=== PATIENT | female | born 1970 | race Caucasian/White ===

== ENCOUNTER 2017-09-06 10:39 | Outpatient (CLI) | payer MEDICAID ==
--- NOTE | 2017-09-06 11:39 | XRAY Report ---
THREE VIEW RIGHT FOOT: 09/06/2017 CLINICAL INDICATION: Foot pain. FINDINGS: AP, lateral, oblique views of the right foot demonstrate no evidence of fracture or dislocation. The joint spaces are preserved. No radiopaque foreign body is seen in the soft tissues. IMPRESSION: NORMAL RIGHT FOOT. TD: 09/06/2017 11:39
== END 2017-09-06 10:40 | disposition home or self-care (01) ==
LOC: DI.S 10:39
PROVIDERS: ATTEND Nurse Practitioner Family
DX: M79.671 Pain in right foot (principal)

== ENCOUNTER 2017-09-07 08:25 | Outpatient (CLI) | payer MEDICAID ==
[2017-09-07 09:00] LABS: BASOPHILS # (AUTO) 0.1 10^3/uL (0.0-0.1); BASOPHILS % (AUTO) 0.9 %; EOSINOPHILS # (AUTO) 0.1 10^3/uL (0.0-0.7); HGB - HEMOGLOBIN 14.2 g/dL (12.0-16.0); LYMPHOCYTES # (AUTO) 1.6 10^3/uL (1.5-3.5); LYMPHOCYTES % (AUTO) 25.4 %; MEAN CORPUSCULAR HEMOGLOBIN 30.6 pg (27.0-31.0); MEAN CORPUSCULAR VOLUME 89.9 fL (81.0-99.0); MEAN PLATELET VOLUME 8.9 fL (7.9-10.8); MONOCYTES # (AUTO) 0.5 10^3/uL (0.0-1.0); MONOCYTES % (AUTO) 7.2 %; NEUTROPHILS # (AUTO) 4.2 10^3/uL (1.5-6.6); NEUTROPHILS % (AUTO) 65.5 %; PLT - PLATELET COUNT 301 10^3/uL (130-450); RED BLOOD COUNT 4.66 10^6/uL (4.20-5.40); WHITE BLOOD COUNT 6.4 x10^3/uL (4.8-10.8)
[2017-09-07 09:16] LABS: ALBUMIN 4.3 g/dL (3.2-5.5); ALBUMIN/GLOBULIN RATIO 1.4 (1.0-2.2); ALKALINE PHOSPHATASE 53 IU/L (42-121); ALT ALANINE AMINOTRANSFERASE 18 IU/L (10-60); AST ASPARTATE AMINOTRANSFERASE 21 IU/L (10-42); BILIRUBIN,TOTAL 0.6 mg/dL (0.2-1.0); BUN - BLOOD UREA NITROGEN 15 mg/dL (6-20); CALCIUM 9.1 mg/dL (8.5-10.3); CARBON DIOXIDE - CO2 22 mmol/L (21-32); CHLORIDE 105 mmol/L (101-111); CHOL/HDL RATIO 2.8 (<4.4); CHOLESTEROL 204 mg/dL; CREATININE 0.8 mg/dL (0.4-1.0); GFR - MDRD 76 (>89); GLUCOSE 94 mg/dL (70-100); HDL CHOLESTEROL 73 mg/dL; LDL CHOLESTEROL,CALCULATED 112 mg/dL; LDL/HDL RATIO 1.5 (<4.4); SODIUM 135 mmol/L (135-145); TOTAL PROTEIN 7.4 g/dL (6.7-8.2); VLDL CHOLESTEROL 19 mg/dL
[2017-09-07 09:30] LABS: CRP - C-REACTIVE PROTEIN < 1.0 mg/dL (0-1.0)
[2017-09-07 10:49] LABS: RHEUMATOID FACTOR NEGATIVE (Negative)
== END 2017-09-07 08:26 | disposition home or self-care (01) ==
LOC: LAB 08:25
PROVIDERS: ATTEND Nurse Practitioner Family
DX: R53.81 Other malaise (principal); Z13.220 Encounter for screening for lipoid disorders; G89.29 Other chronic pain
CPT/HCPCS: 36415; 80053; 80061; 83721; 84443; 85025; 85651; 86038; 86140; 86200; 86430

== ENCOUNTER 2017-09-20 07:47 | Outpatient (CLI) | payer MEDICAID ==
[2017-09-20] MEDS ORDERED: GADOBUTROL 10 MMOL/10 ML SYRINGE ONE (08:04)
[2017-09-20] MEDS ORDERED: GADOBUTROL 10 MMOL/10 ML SYRINGE IVP ONE (09:36)
--- NOTE | 2017-09-20 15:32 | MRI Report ---
MR ANGIOGRAM LOWER EXTREMITIES WITH RUNOFF DATE:09/20/2017 CLINICAL HISTORY: Right foot pain. TECHNIQUE: Standard angiographic protocol. Patient did receive 10 mL Gadavist IV, no reaction. Subseq uent angiographic acquisitions were acquired and then processed to produce angiographic projections. FINDINGS: Distal aorta, common iliacs, external iliacs, and common femorals have a normal appearance. Superficial femoral and popliteal vessels are also normal. Below the knee, normal trifurcation bilat erally. No stenosis, no occlusion, no dissection. Maximal aortic diameter above the bifurcation is 1.6 cm. Review of the source data also shows no evidence for nodules or masses in the muscle bundles of the u pper or lower legs. Marrow signal also appears symmetric and normal. IMPRESSION 1. Normal bilateral lower extremity angiogram and runoff. No evidence for stenosis, stricture, occlus ion or dissection. No aneurysm. Referring Provider Line: [phone] SITE ID: [id number]
== END 2017-09-20 07:48 | disposition home or self-care (01) ==
LOC: DI 07:47
PROVIDERS: ATTEND Nurse Practitioner Family
DX: M79.671 Pain in right foot (principal)
CPT/HCPCS: 73725; A9585

== ENCOUNTER 2017-09-28 13:22 | Outpatient (CLI) | payer MEDICAID ==
--- NOTE | 2017-09-28 14:20 | Mammography Report ---
DIAGNOSTIC BILATERAL MAMMOGRAM: 09/28/2017 CLINICAL INDICATION: Bilateral pain. TECHNIQUE: Bilateral CC, MLO, laterally exaggerated CC, true lateral views. COMPARISON: 04/01/2015, 09/28/2010, 05/26/2009, 11/13/2008. FINDINGS: The breasts again demonstrate heterogeneously dense fibroglandular parenchyma bilaterally. Coarse and punctate, typically benign calcifications are present. No suspicious masses, clustered microcalcifications, or regions of architectural distortion are identified. IMPRESSION: BENIGN FINDINGS. RECOMMENDATION: Routine annual screening unless otherwise clinically indicated. BIRADS CATEGORY 2 - BENIGN FINDINGS. STANDARD QUALIFYING STATEMENTS: 1. This examination was reviewed with the aid of Computer-Aided Detection (CAD). 2. A negative or benign imaging report should not delay biopsy if clinically suspicious findings are present. Consider surgical consultation if warranted. More than 5% of cancers are not identified by imaging. 3. Dense breasts may obscure an underlying neoplasm. TD: 09/28/2017 14:20
== END 2017-09-28 13:23 | disposition home or self-care (01) ==
LOC: DI 13:22
PROVIDERS: ATTEND Nurse Practitioner Family
DX: N64.4 Mastodynia (principal)
CPT/HCPCS: 77066

== ENCOUNTER 2017-10-23 15:13 | Outpatient (CLI) | payer MEDICAID ==
[2017-10-23 15:45] LABS: BASOPHILS # (AUTO) 0.1 10^3/uL (0.0-0.1); BASOPHILS % (AUTO) 0.9 %; EOSINOPHILS # (AUTO) 0.1 10^3/uL (0.0-0.7); EOSINOPHILS % (AUTO) 0.8 %; HGB - HEMOGLOBIN 13.1 g/dL (12.0-16.0); LYMPHOCYTES # (AUTO) 2.4 10^3/uL (1.5-3.5); MEAN CORPUSCULAR HEMOGLOBIN 30.5 pg (27.0-31.0); MEAN CORPUSCULAR HGB CONC 34.5 g/dL (32.0-36.0); MEAN CORPUSCULAR VOLUME 88.5 fL (81.0-99.0); MEAN PLATELET VOLUME 8.4 fL (7.9-10.8); MONOCYTES # (AUTO) 0.5 10^3/uL (0.0-1.0); MONOCYTES % (AUTO) 7.1 %; NEUTROPHILS # (AUTO) 4.2 10^3/uL (1.5-6.6); NEUTROPHILS % (AUTO) 58.2 %; PLT - PLATELET COUNT 329 10^3/uL (130-450); RED CELL DISTRIBUTION WIDTH 12.6 % (12.0-15.0); WHITE BLOOD COUNT 7.3 x10^3/uL (4.8-10.8)
[2017-10-23 15:54] LABS: ALBUMIN 4.5 g/dL (3.2-5.5); ALBUMIN/GLOBULIN RATIO 1.4 (1.0-2.2); BILIRUBIN,TOTAL 0.4 mg/dL (0.2-1.0); CALCIUM 9.4 mg/dL (8.5-10.3); CREATININE 0.8 mg/dL (0.4-1.0); TOTAL PROTEIN 7.8 g/dL (6.7-8.2)
[2017-10-23 15:56] LABS: BILIRUBIN,URINE NEGATIVE (NEGATIVE); GLUCOSE, URINE (UA) NEGATIVE (NEGATIVE); KETONES,URINE (UA) NEGATIVE (NEGATIVE); LEUKOCYTE ESTERASE, URINE NEGATIVE (NEGATIVE); NITRITE,URINE NEGATIVE (NEGATIVE); OCCULT BLOOD,URINE NEGATIVE (NEGATIVE); PH,URINE 6.5 PH (5.0-7.5); PROTEIN,URINE NEGATIVE (NEGATIVE); UROBILINOGEN,URINE 0.2 (NORMAL) E.U./dL (NORMAL)
[2017-10-23 15:58] LABS: CLARITY,URINE CLEAR (CLEAR)
== END 2017-10-23 15:14 | disposition home or self-care (01) ==
LOC: LAB 15:13
PROVIDERS: ATTEND Obstetrics & Gynecology
DX: N80.2 Endometriosis of fallopian tube (principal); R10.2 Pelvic and perineal pain
CPT/HCPCS: 36415; 80053; 81003; 85025; 86850; 86900; 86901

== ENCOUNTER 2017-10-25 08:04 | Observation (INO) | payer MEDICAID ==
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
[2017-10-25] MEDS ORDERED: CLINDAMYCIN 600 MG/50 ML 50 ML IV ONE (08:26)
[2017-10-25] MEDS ORDERED: LACTATED RINGERS 1,000 ML IV ONE ×4 (08:35→12:52)
[2017-10-25] MEDS ORDERED: PHENYLEPHRINE 50 MG/5 ML VIAL IV ONE (09:15)
[2017-10-25] MEDS ORDERED: LIDOCAINE-MPF 2% 5 ML VIAL IM ONE (09:15)
[2017-10-25] MEDS ORDERED: ROCURONIUM 50 MG/5 ML VIAL IVP ONE (09:15)
[2017-10-25] MEDS ORDERED: ePHEDrine 50 MG/ML AMP IVP ONE (09:15)
[2017-10-25] MEDS ORDERED: fentaNYL 250 MCG/5 ML VIAL IVP ONE (09:15)
[2017-10-25] MEDS ORDERED: DEXAMETHASONE 4 MG/ML VIAL IVP ONE (09:15)
[2017-10-25] MEDS ORDERED: PROPOFOL 200 MG/20 ML VIAL IVP ONE (09:15)
[2017-10-25] MEDS ORDERED: GLYCOPYRROLATE 1 MG/5 ML VIAL IVP ONE (09:15)
[2017-10-25] MEDS ORDERED: ONDANSETRON 4 MG/2 ML VIAL IVP ONE (09:15)
[2017-10-25] MEDS ORDERED: NEOSTIGMINE 1 MG/1 ML 10 ML MDV IVP ONE (09:15)
[2017-10-25] MEDS ORDERED: KETOROLAC 30 MG/ML VIAL IVP ONE (09:15)
[2017-10-25] MEDS ORDERED: MIDAZOLAM 2 MG/2 ML VIAL IVP ONE (09:15)
[2017-10-25] MEDS ORDERED: ACETAMINOPHEN 1,000 MG/100 ML 100 ML IV ONE (09:15)
[2017-10-25] MEDS ORDERED: BUPIVACAINE 0.5%-EPI 1:200000 PF 30 ML VIAL SUBQ ONE ×2 (09:56)
[2017-10-25] MEDS ORDERED: BUPIVACAINE 0.5%-EPI 1:200000 PF 30 ML VIAL ONE (10:02)
[2017-10-25] MEDS ORDERED: METHYLENE BLUE 0.5% 50 MG/10 ML AMPULE ONE (12:02)
--- NOTE | 2017-10-25 12:32 | OPERATIVE REPORT ---
Operative Report - General Procedure Date: 10/25/17 Planned Procedure: LAVH with BSO and cystoscopy Pre-Op Diagnosis: Chronic pelvic pain, lower bilateral lower quadrant pain, history of endome Procedure Performed: Laparoscopic assisted vaginal hysterectomy, bilateral salpingectomy, right oophorectomy, cystoscopy, Park's culdoplasty Post Op Diagnosis: Large degenerating leiomyomas; adhesions - Procedure Note Primary Surgeon: José Donohue MD Secondary Surgeon: José Gandhi MD Anesthesia Provider: Real Anders certified nurse envelope stuffer Anesthesia Technique: General ET tube IV Fluids (mL): 1,500 Estimated Blood Loss (mL): 50 Urine Output (mL): 200 Drain/Tube Type: Other Complications: None
[2017-10-25] MEDS ORDERED: ONDANSETRON 4 MG/2 ML VIAL IVP PRN (13:00)
[2017-10-25] MEDS ORDERED: ZOLPIDEM 5 MG TABLET PO PRN (13:00)
[2017-10-25] MEDS ORDERED: HYDROmorphone 1 MG/ML CARPUJECT ONE (13:04)
[2017-10-25] MEDS ORDERED: LORazepam 0.5 MG TABLET PO PRN (13:09)
--- NOTE | 2017-10-25 14:11 | OPERATIVE REPORT ---
DATE OF SERVICE: 10/25/2017 Physician: José Donohue MD PREOPERATIVE DIAGNOSIS: Chronic pelvic pain, bilateral lower quadrant pain right greater than left, history of endometriosis. POSTOPERATIVE DIAGNOSIS: Degenerating leiomyomas approximately 5-6 cm in size x2, adhesions involving the colon and abdominal wall, cystitis cystica. PROCEDURE: Laparoscopic-assisted vaginal hysterectomy, bilateral salpingectomy , right oophorectomy, cystoscopy, Park's culdoplasty, and lysis of adhesions. SURGEON: José Donohue MD, FACOG, FICS TYPING POOL SUPERVISOR: José Sanon MD, FACOG, STATION CLEANING PORTER: Real Anders, Certified Nurse Distribution Lineman ANESTHESIA TYPE: General with ET tube placed. PATHOLOGY: Uterus, tubes and 2 fibroids sent to Pathology. Right ovary also sent. IV FLUIDS: 1500. ESTIMATED BLOOD LOSS: 50 mL or less. URINE OUTPUT: 200 mL, clear. DRAINS: Bates. COMPLICATIONS: None. FINDINGS: Exam under anesthesia finds no vulvar lesions, and the vagina is well suspended high in the pelvis. There is no prolapse found. The uterus seemed bulky, once again with a left ovarian fullness. Laparoscopy findings a normal-sized uterus with 2 pedunculated, large, degenerating fibroids roughly 6 cm in diameter in the left adnexal area and 5 cm in diameter in the cul-de-sac. Reference photos. The tubes appeared to be normal. Right ovary was enlarged full without cystic activity. Left ovary appeared to be normal and was spared. Post-surgical cystoscopy revealed no incursions into the bladder. There is evidence of cystitis cystica. Both right and left ureter were functioning normally. INDICATIONS: I reviewed the patient's complaints, medical history, and intended surgical procedures with her and her significant other prior to the surgery. We reviewed the risks and potential benefits. The patient understands there is possibility of blood loss , transfusion, infection, and damage to the urinary tract or intestines. No guarantee of pain relief was made. Appropriate surgical consents were signed. TECHNIQUE: The patient was brought to the operating room and placed on the table in supine position. She was uneventfully induced and intubated. She was moved to the low dorsal lithotomy position in yellow thin mobile stirrups. She was prepped and draped in the customary sterile fashion. Timeout briefing was done per protocol. A HUMI uterine manipulator was placed as well as Bates. A small incision was placed under the umbilical skin fold and 5 mm Visiport was inserted under direct visualization uneventfully. Next, right and left lower quadrant 5 mm Visiport operating ports were placed. The abdomen was assessed and photographed. We began on the left side. The left tube was tented medially and superiorly to reveal the mesosalpinx. The mesosalpinx was desiccated down to the cornual region. The utero-ovarian ligament was desiccated and divided with LigaSure. Round ligament was desiccated and divided with LigaSure. Next using the LigaSure, the 2 flaps of the broad ligament were developed as well as the bladder flap. The uterine vessels were skeletonized, after which the uterine vessels were doubly desiccated and divided with LigaSure. We continued to advance the bladder off of the cervix. The superior portions of the uterosacral ligament was then grasped and desiccated close to the cervical barrel and hence divided. Next, this process was begun on the right-hand side. On the right, the infundibulopelvic ligament and ovarian vessels were desiccated and divided. Dissection was continued down to the round ligaments, which were desiccated and divided. Broad ligaments were then developed with blunt dissection with LigaSure and uterine vessels desiccated. The right uterosacral ligament was hypertrophied and diverted the ureter closer than usual to the cervical barrel. Care was taken to trace the ureter and to avoid its encroachment. At this point, we converted to the vaginal phase. All gas was removed. A weighted speculum was placed in the posterior vagina and the patient was brought to a high lithotomy position. Marcaine with epinephrine was injected around the cervical barrel. The cervical barrel was then circumscribed with a Bovie pencil. The posterior cul- de-sac was sharply entered. A Keisha speculum then was inserted. We developed the anterior flap and the anterior cul-de-sac was likewise sharply entered. The base of the uterosacral ligaments were clamped with Jennifer clamps, transected, and transfixed with 0 Vicryl. The uterine specimen then was slipped through the colpotomy and preparation was made for closure. The pelvic peritoneum was pursestringed with a running stitch of 2-0 chromic. Uterosacral ligaments were plicated in the midline with multiple strands of 0 Vicryl. The base of the uterosacral ligaments were brought together in the midline after passing strands through the lateral edges of the vaginal cuff. Vaginal mucosa was closed with a running stitch of 0 chromic. Abdomen was re-insufflated and cuff was inspected and found to be hemostatically secure. However, one of the fibroids had avulsed and was still within the abdomen. The abdomen was then de-insufflated and preparations made to reopen the colpotomy wound. The patient was brought to high lithotomy again. A weighted speculum was placed. The mucosal stitches were excised and removed. Next, care was taken to find the ligatures bringing together the base of the uterosacral ligaments. This was cut in the midline to spare the portion of the closure that fixed the vaginal mucosa to the uterosacral ligaments. The culdoplasty stitches were then found individually and divided. Finally, the pursestring stitch for the peritoneum was found divided and the colpotomy open. The remaining fibroid was grasped with single-tooth and double-tooth tenaculum and guided through the colpotomy wound. Next, the pelvic peritoneum was closed with a running stitch of 2-0 chromic. A culdoplasty was re-accomplished bringing the uterosacral ligaments together in the midline with multiple interrupted stitches of 0 Vicryl. The vaginal mucosa was closed with a running stitch of 0 chromic. At this point, all sponge, needle and instrument counts were confirmed as correct. The abdomen was then re-insufflated with gas and gas and inspected. The vaginal apex and closure was intact. On the right-hand side, there was a bleeding vessel that was in the proximity of the right ureter, but sufficiently above it to allow use of bipolar cautery/LigaSure. It took multiple Ligasure to controll the bleeding. After 3 judicious applications, the small bleeder was stanched. We spent 3 minutes observing it to make sure that it would not reopen. At this point, the abdominal phase of the procedure was finished. The abdomen was desufflated of CO2 gas. All trocars were removed. Trocar wounds were then reinforced with additional injections of 0.25% Marcaine with epinephrine. Skin was closed with interrupted subcuticular stitches of Monocryl and dressed with Dermabond. Bates was removed and the bladder inspected. The bladder was not encroached on. There was free flow of urine from both the right and left ureter. There was some evidence of cystitis cystica, but no lesions suggestive of endometriosis or dysplasia. At this point, the procedure was finished. All sponge, needle, and instrument counts were confirmed as correct. The patient was uneventfully awakened from general anesthesia and extubated. She went to the recovery room in stable condition. Intraoperative findings were reviewed. The patient will remain overnight in an observation status for monitoring of potential postop bleeding as well as anticipated pain and nausea control. She will be reevaluated in the morning. Do not anticipate more than 72 hours of observation will be required. TD: 10/25/2017 14:11 FANTASMA
[2017-10-25] MEDS: oxyCODONE 5 MG TABLET PO PRN ×2 (14:28→18:51)
[2017-10-25] MEDS ORDERED: SODIUM CHLORIDE FLUSH 0.9% 10 ML SYRINGE ONE (14:40)
[2017-10-25] MEDS: IBUPROFEN 600 MG TABLET PO SCH (17:57)
[2017-10-25] MEDS: LACTATED RINGERS 1,000 ML IV SCH ×2 (17:59→19:44)
[2017-10-25] MEDS: DOCUSATE SODIUM 100 MG CAPSULE PO SCH (20:48)
[2017-10-25] MEDS: PANTOPRAZOLE 40 MG TABLET PO SCH (20:48)
[2017-10-25] MEDS ORDERED: AMITRIPTYLINE 25 MG TABLET PO SCH (21:00)
[2017-10-26] MEDS: IBUPROFEN 600 MG TABLET PO SCH ×3 (00:19→12:34)
[2017-10-26] MEDS: oxyCODONE 5 MG TABLET PO PRN ×2 (00:28→07:49)
[2017-10-26] MEDS: LACTATED RINGERS 1,000 ML IV SCH (05:32)
[2017-10-26 06:04] LABS: BASOPHILS # (AUTO) 0.1 10^3/uL (0.0-0.1); BASOPHILS % (AUTO) 0.4 %; EOSINOPHILS # (AUTO) 0.1 10^3/uL (0.0-0.7); EOSINOPHILS % (AUTO) 0.5 %; HGB - HEMOGLOBIN 11.5 g/dL (12.0-16.0); LYMPHOCYTES # (AUTO) 2.5 10^3/uL (1.5-3.5); LYMPHOCYTES % (AUTO) 19.1 %; MEAN CORPUSCULAR HEMOGLOBIN 29.1 pg (27.0-31.0); MEAN CORPUSCULAR HGB CONC 32.6 g/dL (32.0-36.0); MEAN CORPUSCULAR VOLUME 89.4 fL (81.0-99.0); MONOCYTES # (AUTO) 0.6 10^3/uL (0.0-1.0); MONOCYTES % (AUTO) 4.8 %; NEUTROPHILS # (AUTO) 9.9 10^3/uL (1.5-6.6); NEUTROPHILS % (AUTO) 75.2 %; PLT - PLATELET COUNT 286 10^3/uL (130-450); RED BLOOD COUNT 3.96 10^6/uL (4.20-5.40); RED CELL DISTRIBUTION WIDTH 12.4 % (12.0-15.0); WHITE BLOOD COUNT 13.2 x10^3/uL (4.8-10.8)
[2017-10-26] MEDS: PANTOPRAZOLE 40 MG TABLET PO SCH (06:16)
[2017-10-26] MEDS: DOCUSATE SODIUM 100 MG CAPSULE PO SCH (08:34)
--- NOTE | 2017-10-26 11:42 | DISCHARGE SUMMARY ---
"Discharge Summary Admit Date: 10/25/17 Discharge Date: 10/26/17 Discharging Provider: Dr. José Donohue Code Status: Attempt Resuscitation Condition at Discharge: Good Discharge Disposition: 01 Home, Self Care - DIAGNOSES Admission Diagnoses: ;Chronic pelvic pain and bilateral lower quadrant pain; large degenerating leiomyoma; final pathology pending; cystitis cystica Discharge Diagnoses with Status of Each Condition: Degenerating large fibroids; smoker with mild COPD; tobacco cessation - HPI History of Present Illness: Mrs. Grajeda is a 47-year-old nulliparous woman with documented endometriosis who reported long-standing chronic pelvic pain and bilateral lower quadrant pain. Her cultures were negative for chlamydia/gonorrhea. She is failed nonsteroidals and a prior trial of oral contraceptives. She has stable mild COPD. Reference my detailed typewritten history - CONSULTS | PROCEDURES Consultations: Respiratory therapy, aid in tobacco cessation Procedures: Laparoscopic assisted vaginal hysterectomy, bilateral salpingectomy, right oophorectomy, cystoscopy - HOSPITAL COURSE Hospital Course: Patient was admitted on the morning of 25 october for her LAVH. The LAVH proceeded well including removal of 2 large degenerating leiomyoma. Reference detailed operative report. Total blood loss was less than 50 cc. The specimen was large and 1 of the leiomyoma evulsed unnoticed on removal through the colpotomy. The missing fibroid was discovered on laparoscopy and the second leiomyoma was uneventfully retrieved. On second closure, oozing from the right uterosacral region above the ureter. The anatomy was distorted due to the size of the fibroids and fibrosis of the uterosacral ligament/pelvic sidewall. The bleeding vessel was effectively treated with bipolar cautery. Patient was a heavy smoker and tolerated anesthesia well. Postoperatively we continue to reinforce the need for tobacco cessation and the patient is agreed to try Wellbutrin 150 XL daily. She did not have excessive nausea and vomiting. She was rapidly advanced to full diet and self-care exercise activities. On the afternoon of postoperative day 1 she was discharged. Postop hemoglobin was normal at 11.3. - ALLERGIES Allergies/Adverse Reactions: Allergies Allergy/AdvReac Type Severity Reaction Status Date / Time Penicillins Allergy Severe Rash Verified 10/24/17 14:14 hydrocodone bitartrate * AdvReac Intermediate Itching Verified 10/24/17 14:14 [From Vicodin] oxycodone HCl * AdvReac Intermediate Itching Verified 10/24/17 14:14 [From Percocet] - MEDICATIONS Home Medications: Ambulatory Orders Medication Instructions Recorded Confirmed Omeprazole [PriLOSEC] 20 mg PO QDAC 05/26/16 10/25/17 Albuterol Sulfate [Proair Hfa 1 - 2 puffs INH Q4H PRN 10/24/17 10/25/17 Inhaler] Amitriptyline HCl 50 mg PO DAILY 10/24/17 10/25/17 Fluticasone [Flonase] 1 sprays MICHELLE BID 10/24/17 10/25/17 Lisinopril [Lisinopril] 10 mg PO DAILY 10/25/17 10/25/17 - PHYSICAL EXAM AT DISCHARGE General Appearance: positive: No acute distress Eyes Bilateral: positive: EOMI, Conjunctivae nml, No scleral icterus ENT: positive: No signs of dehydration Neck: positive: Nml inspection, Other (Supple neck) Respiratory: positive: Wheezes (Faint wheeze, smoker's cough) Cardiovascular: positive: Regular rate & rhythm, No murmur, No gallop Abdomen: positive: Non-tender, Nml bowel sounds, No distention Skin: positive: Color nml, No rash, Warm, Dry, Other (Surgical wounds intact without problem ) Extremities: positive: No pedal edema Neurologic/Psychiatric: positive: Oriented x3, CN's nml (2-12), Disoriented to time - LABS Result Diagrams: 10/26/17 04:35 - FOLLOW UP Follow Up: Follow-up with Dr. Donohue in 2 weeks for wound check. Reviewed warning and callback signs with the patient. - TIME SPENT Time Spent in Discharge (Minutes): 25"
--- NOTE | 2017-10-26 11:58 | Discharge Plan ---
Discharge Plan Disposition: 01 Home, Self Care Condition: Good Diet: Regular Activity Restrictions: Activity as Tolerated Shower Restrictions: No Driving Restrictions: No Weight Bearing: Full Weight No Smoking: If you smoke, Please STOP! Call for help. Follow-up with: Krystin Hou ARNP [Primary Care Provider] - José Donohue MD [Provider Admit Priv/Credential] -
[2017-10-26 12:34] VITALS: BP 145/64
== END 2017-10-26 12:50 | disposition home or self-care (01) ==
LOC: SDS 08:04 → MS2 13:00
PROVIDERS: ADMIT Obstetrics & Gynecology; ATTEND Obstetrics & Gynecology
PROC: 0UT0FZZ Resection of Right Ovary, Via Natural or Artificial Opening With Percutaneous Endoscopic Assistance (ICD-10-PCS; 2017-10-25)
PROC: 0UT7FZZ Resection of Bilateral Fallopian Tubes, Via Natural or Artificial Opening With Percutaneous Endoscopic Assistance (ICD-10-PCS; 2017-10-25)
PROC: 0UQF7ZZ Repair Cul-de-sac, Via Natural or Artificial Opening (ICD-10-PCS; 2017-10-25)
PROC: 0TJB8ZZ Inspection of Bladder, Via Natural or Artificial Opening Endoscopic (ICD-10-PCS; 2017-10-25)
PROC: 0UT9FZZ Resection of Uterus, Via Natural or Artificial Opening With Percutaneous Endoscopic Assistance (ICD-10-PCS; principal; 2017-10-25 09:15)
DX: D25.1 Intramural leiomyoma of uterus (principal); N94.10 Unspecified dyspareunia; N97.9 Female infertility, unspecified; N94.6 Dysmenorrhea, unspecified; N92.1 Excessive and frequent menstruation with irregular cycle; N30.80 Other cystitis without hematuria; G89.29 Other chronic pain; K66.0 Peritoneal adhesions (postprocedural) (postinfection); J44.9 Chronic obstructive pulmonary disease, unspecified; F17.210 Nicotine dependence, cigarettes, uncomplicated; K21.9 Gastro-esophageal reflux disease without esophagitis; F32.9 Major depressive disorder, single episode, unspecified; F41.9 Anxiety disorder, unspecified; Z87.42 Personal history of other diseases of the female genital tract; Z87.11 Personal history of peptic ulcer disease
CPT/HCPCS: 36415; 58552; 85025; 88307; A9270; J0131; J1170; J3010; J7120

== ENCOUNTER 2019-05-21 19:53 | Emergency (ER) | payer MEDICAID ==
--- NOTE | 2019-05-21 20:54 | XRAY Report ---
Reason: cough Procedure Date: 05/21/2019 Accession Number: [id number] / [id number] Procedure: XR - Chest 2 View X-Ray CPT Code: 60273 Final Report FULL RESULT: EXAM: CHEST RADIOGRAPHY EXAM DATE: 05/21/2019 08:19 PM. CLINICAL HISTORY: Cough. Shortness of breath. Intermittent chest pain for 1 week. COMPARISON: CHEST 2 VIEW PA/LAT 05/26/2016 7:16 PM. TECHNIQUE: 2 views. FINDINGS: Lungs/Pleura: No consolidation, airspace disease, pleural effusion or pneumothorax. Mediastinum: Heart and mediastinal contours are unremarkable. No acute bone findings are seen. IMPRESSION: No acute cardiopulmonary disease seen. RADIA
--- NOTE | 2019-05-21 22:40 | ED Physician Documentation ---
PD HPI URI - Stated complaint Stated Complaint: CP,TANNER,CONGESTION,ABD PX - Chief complaint Chief Complaint: Resp - History obtained from History obtained from: Patient - History of Present Illness Timing - onset: How many weeks ago (1) Timing duration: Weeks (1) Timing details: Abrupt onset, Still present (worsening cough the past 1-2 days, so much that it is hurting in chest and abdomen when she coughs.) Associated symptoms: Productive cough (now is productive). No: Fever Contributing factors: No: Sick contact, Travel, Immunocompromised, COPD / asthma Improves by: No: Medication Worsened by: Activity, Other (cough) Similar symptoms before: Diagnosis (pneumonia few years ago. no asthma nor ongoing lung problems.) Recently seen: Not recently seen Review of Systems Constitutional: reports: Chills, Myalgias, Fatigue Nose: reports: Congestion. denies: Rhinorrhea / runny nose Throat: denies: Sore throat Cardiac: reports: Chest pain / pressure. denies: Palpitations, Pedal edema, Calf pain Respiratory: reports: Cough GI: reports: Abdominal Pain (with coughing). 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 - Present Medications Home Medications: Ambulatory Orders Medication Instructions Recorded Confirmed Omeprazole [PriLOSEC] 20 mg PO QDAC 05/26/16 05/21/19 Albuterol Sulfate [Proair Hfa 1 - 2 puffs INH Q4H PRN 10/24/17 05/21/19 Inhaler] Acetaminophen [Tylenol Extra 2 tab PO BID 05/21/19 05/21/19 Strength] Benzonatate [Tessalon Perle] 100 mg PO TID PRN #25 capsule 05/21/[address] [Voltaren] 75 mg PO BID 05/21/19 05/21/19 Doxycycline Monohydrate 100 mg PO BID #14 tablet 05/21/19 Duloxetine HCl 60 mg PO QPM 05/21/19 05/21/19 dexAMETHasone [Decadron] 4 mg PO DAILY #5 tablet 05/21/19 guaiFENesin/CODEINE [Robitussin AC] 10 ml PO Q6H PRN #240 ml 05/21/19 - Allergies Allergies/Adverse Reactions: Allergies Allergy/AdvReac Type Severity Reaction Status Date / Time Penicillins Allergy Severe Rash Verified 05/21/19 19:59 - Social History Does the pt smoke?: Yes Smoking Status: Current every day smoker Does the pt drink ETOH?: Yes Does the pt have substance abuse?: No - Immunizations Immunizations are current?: Yes - POLST Patient has POLST: No PD ED PE NORMAL - Vitals Vital signs reviewed: Yes - General General: Alert and oriented X 3, No acute distress, Well developed/nourished - HEENT HEENT: Ears normal, Pharynx benign - Neck Neck: Supple, no meningeal sign, No adenopathy - Cardiac Cardiac: RRR, No murmur - Respiratory Respiratory: Clear bilaterally - Abdomen Abdomen: Soft, Non tender - Derm Derm: Normal color, Warm and dry - Extremities Extremities: Normal ROM s pain, No edema, No calf tenderness / cord - Neuro Neuro: Alert and oriented X 3, No motor deficit, Normal speech Results - Vitals Vitals: Vital Signs - 24 hr 05/21/19 05/21/19 05/21/19 22:41 23:15 23:56 Temperature 36.6 C Heart Rate 59 L 64 72 Respiratory 12 17 16 Rate Blood Pressure 158/98 H 169/91 H 156/81 H O2 Saturation 98 97 86 L Oxygen O2 Source Room air - EKG (time done) 20:02 Rate: Rate (enter#) (66) Rhythm: NSR [place]: Normal Intervals: Normal [place] QRS: Normal Ischemia: Normal ST segments. No: ST elevation c/w ischemia, ST depression Compare to prior EKG: Old EKG unavailable - Rads (name of study) chest xray Radiology: Prelim report reviewed (no infiltrates), See rad report PD MEDICAL DECISION MAKING - ED course Complexity details: reviewed results, considered differential, d/w patient Departure - Departure Disposition: 01 Home, Self Care Clinical Impression: Lower respiratory infection Condition: Stable Record reviewed to determine appropriate education?: Yes Instructions: ED Bronchitis Asthmatic Follow-Up: Stephany Tong ARNP [Primary Care Provider] - Prescriptions: Benzonatate [Tessalon Perle] 100 mg PO TID PRN #25 capsule PRN Reason: Cough dexAMETHasone [Decadron] 4 mg PO DAILY #5 tablet Doxycycline Monohydrate 100 mg PO BID #14 tablet guaiFENesin/CODEINE [Robitussin AC] 10 ml PO Q6H PRN #240 ml PRN Reason: Cough Comments: Continue your albuterol inhaler 2 puffs 4 times a day and constrict times as needed for cough and wheeze. Decadron steroid daily for 5 more days to decrease inflammation of the bronchials. Use Tessalon if needed for cough suppression. Add codeine cough medicine if needed. Doxycycline antibiotic for possibility of bacterial component. Recheck if not improving well over the next several days and resolved over a week. Discharge Date/Time: 05/21/19 23:58
[2019-05-21] MEDS ORDERED: HYDROcod/ACET 5/325 Prepack 4 PO STA (23:07)
[2019-05-21] MEDS ORDERED: CHERRY SYRUP 10 ML UDC PO ONE (23:07)
[2019-05-21] MEDS ORDERED: BENZONATATE 100 MG CAPSULE PO STA (23:07)
[2019-05-21] MEDS ORDERED: DEXAMETHASONE 10 MG/ML VIAL PO STA (23:07)
[2019-05-21 23:58] VITALS: BP 156/81
== END 2019-05-21 23:58 | disposition home or self-care (01) ==
LOC: ED 19:53
DX: J22 Unspecified acute lower respiratory infection (principal); F17.200 Nicotine dependence, unspecified, uncomplicated
CPT/HCPCS: 71046; 93005; 99284; A9270

== ENCOUNTER 2019-05-28 18:14 | Emergency (ER) | payer MEDICAID ==
--- NOTE | 2019-05-28 19:35 | XRAY Report ---
Reason: SOA, mailaise Procedure Date: 05/28/2019 Accession Number: [id number] / [id number] Procedure: XR - Chest 2 View X-Ray CPT Code: 82257 Final Report FULL RESULT: EXAM: CHEST RADIOGRAPHY EXAM DATE: 05/28/2019 07:06 PM. CLINICAL HISTORY: SOB, malaise. COMPARISON: CHEST 2 VIEW 05/21/2019 8:07 PM. TECHNIQUE: 2 views. FINDINGS: Lungs/Pleura: No focal lung consolidation. No pleural effusion. No pneumothorax. Mediastinum: Cardiac silhouette size appears unremarkable Other: None. IMPRESSION: No focal lung consolidation or pleural effusions. RADIA
--- NOTE | 2019-05-28 19:40 | ED Physician Documentation ---
PD HPI URI - Stated complaint Stated Complaint: CONGESTION/BODY PX - Chief complaint Chief Complaint: Resp - History obtained from History obtained from: Patient - History of Present Illness Timing - onset: How many weeks ago (2) Timing duration: Weeks (2) Timing details: Gradual onset, Still present Associated symptoms: Fever, Productive cough, Dyspnea. No: NVD Contributing factors: No: Sick contact, COPD / asthma Recently seen: Emergency Dept (seen last week for similar and felt improved first few days, then same again and still with persistent productive cough.) Review of Systems Constitutional: reports: Chills, Myalgias, Fatigue. denies: Fever Nose: reports: Congestion. denies: Rhinorrhea / runny nose Throat: reports: Sore throat Cardiac: reports: Chest pain / pressure (with coughing, hurting worse this week.) Respiratory: reports: Cough GI: denies: Abdominal Pain, Nausea, Vomiting, Diarrhea Skin: denies: Rash Neurologic: denies: Near syncope, Altered mental status, Headache PD PAST MEDICAL HISTORY - Past Medical History Cardiovascular: None Respiratory: Pneumonia, Other Endocrine/Autoimmune: None GI: GERD HEENT: Chronic sinusitis Psych: Depression Musculoskeletal: Scoliosis, Chronic back pain Derm: None - Past Surgical History Past Surgical History: Yes General: EGD 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 - Present Medications Home Medications: Ambulatory Orders Medication Instructions Recorded Confirmed Omeprazole [PriLOSEC] 20 mg PO QDAC 05/26/16 05/21/19 Albuterol Sulfate [Proair Hfa 1 - 2 puffs INH Q4H PRN 10/24/17 05/21/19 Inhaler] Acetaminophen [Tylenol Extra 2 tab PO BID 05/21/19 05/21/19 Strength] Benzonatate [Tessalon Perle] 100 mg PO TID PRN #25 capsule 05/21/[address] [Voltaren] 75 mg PO BID 05/21/19 05/21/19 Doxycycline Monohydrate 100 mg PO BID #14 tablet 05/21/19 Duloxetine HCl 60 mg PO QPM 05/21/19 05/21/19 dexAMETHasone [Decadron] 4 mg PO DAILY #5 tablet 05/21/19 guaiFENesin/CODEINE [Robitussin AC] 10 ml PO Q6H PRN #240 ml 05/21/19 Albuterol Sulf [Ventolin Hfa 1 - 2 puffs INH Q4HR PRN #1 inhaler 05/28/19 Inhaler] Benzonatate [Tessalon Perle] 100 mg PO TID PRN #30 capsule 05/28/19 Cephalexin [Keflex] 500 mg PO TID #20 capsule 05/28/19 Hydrocodone/Acetaminophen [[place] 1 each PO Q6H PRN #20 tablet 05/28/19 5-325 Tablet] dexAMETHasone [Decadron] 4 mg PO DAILY #5 tablet 05/28/19 - Allergies Allergies/Adverse Reactions: Allergies Allergy/AdvReac Type Severity Reaction Status Date / Time Penicillins Allergy Severe Rash Verified 05/21/19 19:59 - Social History Does the pt smoke?: Yes Smoking Status: Current every day smoker Does the pt drink ETOH?: Yes Does the pt have substance abuse?: No - Immunizations Immunizations are current?: Yes - POLST Patient has POLST: No PD ED PE NORMAL - Vitals Vital signs reviewed: Yes - General General: Alert and oriented X 3, Well developed/nourished - HEENT HEENT: Moist mucous membranes, Pharynx benign - Neck Neck: Supple, no meningeal sign, No adenopathy - Cardiac Cardiac: RRR, No murmur - Respiratory Respiratory: No: Clear bilaterally (exp wheezing noted, some coarse sounds right side. ) - Abdomen Abdomen: Soft, Non tender - Derm Derm: Normal color, Warm and dry - Extremities Extremities: Normal ROM s pain, No edema, No calf tenderness / cord - Neuro Neuro: Alert and oriented X 3, No motor deficit, Normal speech Results - Vitals Vitals: Oxygen O2 Source Room air - Rads (name of study) chest xray Radiology: Prelim report reviewed (no focal infiltrates nor consolidation), See rad report PD MEDICAL DECISION MAKING - ED course Complexity details: considered differential (bronchitis symptoms. Persistent cough but did feel tessalon and steroids helped. With wheezing now, so can add inhaler. ), d/w patient Departure - Departure Disposition: 01 Home, Self Care Clinical Impression: Lower respiratory infection Condition: Stable Record reviewed to determine appropriate education?: Yes Follow-Up: Stephany Tong ARNP [Primary Care Provider] - Prescriptions: Albuterol Sulf [Ventolin Hfa Inhaler] 1 - 2 puffs INH Q4HR PRN #1 inhaler PRN Reason: Shortness Of Air/Wheezing Benzonatate [Tessalon Perle] 100 mg PO TID PRN #30 capsule PRN Reason: Cough Cephalexin [Keflex] 500 mg PO TID #20 capsule dexAMETHasone [Decadron] 4 mg PO DAILY #5 tablet Hydrocodone/Acetaminophen [[place] 5-325 Tablet] 1 each PO Q6H PRN #20 tablet PRN Reason: Pain Comments: Stay well-hydrated. Decadron steroid for 5 more days. Tessalon if needed for coughing. Hydrocodone if needed for pains and cough. Cephalexin 3 times a day for a week. Recheck if not improving well over the next several days. Continue your albuterol inhaler 2 puffs 4 times a day and extra times as needed. Discharge Date/Time: 05/28/19 21:06
[2019-05-28] MEDS ORDERED: cephALEXin 250 MG CAPSULE PO STA (20:26)
[2019-05-28] MEDS ORDERED: HYDROcod/ACETAM 5/325 MG TABLET PO STA (20:26)
[2019-05-28] MEDS ORDERED: CHERRY SYRUP 10 ML UDC PO ONE (20:26)
[2019-05-28] MEDS ORDERED: DEXAMETHASONE 10 MG/ML VIAL PO STA (20:26)
[2019-05-28 21:07] VITALS: BP 149/94
== END 2019-05-28 21:06 | disposition home or self-care (01) ==
LOC: ED 18:14
DX: J22 Unspecified acute lower respiratory infection (principal); F17.200 Nicotine dependence, unspecified, uncomplicated
CPT/HCPCS: 71046; 99283; 99284; A9270

== ENCOUNTER 2019-12-20 14:23 | Emergency (ER) | payer MEDICAID ==
[2019-12-20 14:37] VITALS: BP 164/96
[2019-12-20] MEDS ORDERED: CLINDAMYCIN 150 MG CAPSULE PO STA (14:52)
[2019-12-20] MEDS ORDERED: DOXYCYCLINE 100 MG TABLET PO STA (14:53)
--- NOTE | 2019-12-20 15:17 | ED Physician Documentation ---
History of Present Illness - Stated complaint Stated Complaint: DOG BITES - Chief complaint Chief Complaint: Laceration - History obtained from History obtained from: Patient - History of Present Illness Timing: Today Pain level max: 4 Pain level now: 3 - Additonal information Additional information: 49-year-old female states that she was bit by her dog today. Has bites to the bilateral forearms, the chin and the left ear. Unknown last tetanus shot. Nothing makes it better or worse. 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 - Present Medications Home Medications: Ambulatory Orders Medication Instructions Recorded Confirmed Omeprazole [PriLOSEC] 20 mg PO QDAC 05/26/16 05/21/19 Albuterol Sulfate [Proair Hfa 1 - 2 puffs INH Q4H PRN 10/24/17 05/21/19 Inhaler] Acetaminophen [Tylenol Extra 2 tab PO BID 05/21/19 05/21/19 Strength] Benzonatate [Tessalon Perle] 100 mg PO TID PRN #25 capsule 05/21/[address] [Voltaren] 75 mg PO BID 05/21/19 05/21/19 Doxycycline Monohydrate 100 mg PO BID #14 tablet 05/21/19 Duloxetine HCl 60 mg PO QPM 05/21/19 05/21/19 dexAMETHasone [Decadron] 4 mg PO DAILY #5 tablet 05/21/19 guaiFENesin/CODEINE [Robitussin AC] 10 ml PO Q6H PRN #240 ml 05/21/19 Albuterol Sulf [Ventolin Hfa 1 - 2 puffs INH Q4HR PRN #1 inhaler 05/28/19 Inhaler] Benzonatate [Tessalon Perle] 100 mg PO TID PRN #30 capsule 05/28/19 Cephalexin [Keflex] 500 mg PO TID #20 capsule 05/28/19 Hydrocodone/Acetaminophen [[place] 1 each PO Q6H PRN #20 tablet 05/28/19 5-325 Tablet] dexAMETHasone [Decadron] 4 mg PO DAILY #5 tablet 05/28/19 Clindamycin HCl [Clindamycin 300MG 300 mg PO Q6H #40 capsule 12/20/19 CAP] Doxycycline Hyclate 100 mg PO BID #20 capsule 12/20/19 - Allergies Allergies/Adverse Reactions: Allergies Allergy/AdvReac Type Severity Reaction Status Date / Time Penicillins Allergy Severe Rash Verified 12/20/19 14:26 - Social History Does the pt smoke?: Yes Smoking Status: Current every day smoker Does the pt drink ETOH?: Yes Does the pt have substance abuse?: No - Immunizations Immunizations are current?: Yes - POLST Patient has POLST: No PD ED PE NORMAL - Vitals Vital signs reviewed: Yes - General General: Alert and oriented X 3, No acute distress - HEENT HEENT: Moist mucous membranes - Neck Neck: Supple, no meningeal sign - Cardiac Cardiac: RRR, Strong equal pulses - Respiratory Respiratory: No respiratory distress, Clear bilaterally - Derm Derm: Warm and dry - Extremities Extremities: Other (Abrasions to the bilateral forearms. No lacerations to repair) - Neuro Neuro: Alert and oriented X 3 - Psych Psych: Normal mood, Normal affect - Free text exam Free text exam: Abrasion to the chin. No laceration repair. There is a laceration to the left ear PD ED PE EXPANDED - HEENT HEENT Visual: 1 - laceration (Subcutaneous, not through the cartilage. Not through and through. Approximately 1.5 cm, curved) Results - Vitals Vitals: Vital Signs - 24 hr 12/20/19 14:26 Temperature 36.5 C Heart Rate 88 Respiratory 14 Rate Blood Pressure 164/96 H O2 Saturation 98 Oxygen O2 Source Room air Procedures - Laceration (location) Left ear Length in cm: 1.5 Wound type: Curved, Flap, Clean Neurovascular status: Sensory intact, Motor intact, Vascular intact Wound Preparation: Irrigated copiously NS, Wound explored, To the base Skin layer closure: Dermabond Other: Patient tolerated well, No complications, Neurovascular intact, Tetanus booster given Complexity: Simple PD MEDICAL DECISION MAKING - ED course Complexity details: considered differential, d/w patient ED course: Patient with a left ear laceration, repaired with Dermabond. This is not deep and does not pass through the cartilage. Bleeding controlled. Tdap given. The remainder of the wounds were cleansed and bandaged. She is allergic to penicillin, will place her on doxycycline and clindamycin. Warnings of infection and instructions on wound care given at bedside. Also counseled on how to minimize scarring. Patient counseled regarding signs and symptoms for which I believe and urgent re-evaluation would be necessary. Patient with good understanding of and agreement to plan and is comfortable going home at this time This document was made in part using voice recognition software. While efforts are made to proofread this document, sound alike and grammatical errors may occur. Departure - Departure Disposition: 01 Home, Self Care Clinical Impression: Lacerations of multiple sites without complication Dog bite Qualifiers: Encounter type: initial encounter Qualified Code(s): W54.0XXA - Bitten by dog, initial encounter Condition: Good Instructions: ED Laceration Facial Skin Glue Follow-Up: Stephany Tong ARNP [Primary Care Provider] - Within 3 Days Prescriptions: Clindamycin HCl [Clindamycin 300MG CAP] 300 mg PO Q6H #40 capsule Doxycycline Hyclate 100 mg PO BID #20 capsule Comments: Take all antibiotics until gone. Return if you worsen. Follow-up with your doctor in 3 to 4 days for a wound check. The glue will dissolve on its own. Return if you notice redness, swelling or drainage from the wound. Do not apply ointment as this may dissolve the glue.
[2019-12-20] MEDS ORDERED: TETANUS/DIPHTHERIA/PERTUSSIS 0.5 ML SYRINGE IM ONE (15:24)
== END 2019-12-20 15:57 | disposition home or self-care (01) ==
LOC: ED 14:23
DX: S50.872A Other superficial bite of left forearm, initial encounter (principal); S50.871A Other superficial bite of right forearm, initial encounter; S00.87XA Other superficial bite of other part of head, initial encounter; S01.352A Open bite of left ear, initial encounter; W54.0XXA Bitten by dog, initial encounter; Z23 Encounter for immunization; Z88.0 Allergy status to penicillin; F17.200 Nicotine dependence, unspecified, uncomplicated
CPT/HCPCS: 12011; 90471; 90715; 99283; 99284; A9270

== ENCOUNTER 2019-12-29 20:22 | Emergency (ER) | payer MEDICAID ==
[2019-12-29 20:50] LABS: BASOPHILS # (AUTO) 0.1 10^3/uL (0.0-0.1); BASOPHILS % (AUTO) 0.8 %; EOSINOPHILS # (AUTO) 0.2 10^3/uL (0.0-0.7); EOSINOPHILS % (AUTO) 2.1 %; LYMPHOCYTES # (AUTO) 2.8 10^3/uL (1.5-3.5); LYMPHOCYTES % (AUTO) 35.8 %; MEAN CORPUSCULAR HEMOGLOBIN 31.8 pg (27.0-31.0); MEAN CORPUSCULAR HGB CONC 34.4 g/dL (32.0-36.0); MEAN CORPUSCULAR VOLUME 92.4 fL (81.0-99.0); MEAN PLATELET VOLUME 10.1 fL (7.9-10.8); MONOCYTES # (AUTO) 0.5 10^3/uL (0.0-1.0); MONOCYTES % (AUTO) 6.2 %; NEUTROPHILS # (AUTO) 4.2 10^3/uL (1.5-6.6); NEUTROPHILS % (AUTO) 54.7 %; PLT - PLATELET COUNT 292 10^3/uL (130-450); RED BLOOD COUNT 4.09 10^6/uL (4.20-5.40); RED CELL DISTRIBUTION WIDTH 13.6 % (12.0-15.0); WHITE BLOOD COUNT 7.7 x10^3/uL (4.8-10.8)
--- NOTE | 2019-12-29 21:00 | ED Physician Documentation ---
History of Present Illness - Stated complaint Stated Complaint: HIGH BP/TINGLING - Chief complaint Chief Complaint: General - History obtained from History obtained from: Patient - History of Present Illness Timing: Today Pain level max: 0 Pain level now: 0 - Additonal information Additional information: 49-year-old female states she has been under increasing stress recently at home. Is currently on antibiotics for a dog bite. She has been complaining of tingling to the bilateral hands and legs recently. Not eating or drinking well at home. She is a smoker. Nothing makes it better or worse. No numbness. No weakness. 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 - Present Medications Home Medications: Ambulatory Orders Medication Instructions Recorded Confirmed Omeprazole [PriLOSEC] 20 mg PO QDAC 05/26/16 05/21/19 Albuterol Sulfate [Proair Hfa 1 - 2 puffs INH Q4H PRN 10/24/17 05/21/19 Inhaler] Acetaminophen [Tylenol Extra 2 tab PO BID 05/21/19 05/21/19 Strength] Benzonatate [Tessalon Perle] 100 mg PO TID PRN #25 capsule 05/21/[address] [Voltaren] 75 mg PO BID 05/21/19 05/21/19 Doxycycline Monohydrate 100 mg PO BID #14 tablet 05/21/19 Duloxetine HCl 60 mg PO QPM 05/21/19 05/21/19 dexAMETHasone [Decadron] 4 mg PO DAILY #5 tablet 05/21/19 guaiFENesin/CODEINE [Robitussin AC] 10 ml PO Q6H PRN #240 ml 05/21/19 Albuterol Sulf [Ventolin Hfa 1 - 2 puffs INH Q4HR PRN #1 inhaler 05/28/19 Inhaler] Benzonatate [Tessalon Perle] 100 mg PO TID PRN #30 capsule 05/28/19 Cephalexin [Keflex] 500 mg PO TID #20 capsule 05/28/19 Hydrocodone/Acetaminophen [[place] 1 each PO Q6H PRN #20 tablet 05/28/19 5-325 Tablet] dexAMETHasone [Decadron] 4 mg PO DAILY #5 tablet 05/28/19 Clindamycin HCl [Clindamycin 300MG 300 mg PO Q6H #40 capsule 12/20/19 CAP] Doxycycline Hyclate 100 mg PO BID #20 capsule 12/20/19 - Allergies Allergies/Adverse Reactions: Allergies Allergy/AdvReac Type Severity Reaction Status Date / Time Penicillins Allergy Severe Rash Verified 12/29/19 20:36 - Social History Does the pt smoke?: Yes Smoking Status: Current every day smoker Does the pt drink ETOH?: Yes Does the pt have substance abuse?: No - Immunizations Immunizations are current?: Yes - POLST Patient has POLST: No PD ED PE NORMAL - Vitals Vital signs reviewed: Yes - General General: Alert and oriented X 3, No acute distress - HEENT HEENT: Other (Dry lips and tongue) - Neck Neck: Supple, no meningeal sign - Cardiac Cardiac: RRR, Strong equal pulses - Respiratory Respiratory: No respiratory distress, Clear bilaterally - Abdomen Abdomen: Soft, Non tender, Non distended - Derm Derm: Warm and dry, No rash - Extremities Extremities: No edema, No calf tenderness / cord - Neuro Neuro: Alert and oriented X 3 - Psych Psych: Normal mood, Normal affect Results - Vitals Vitals: Vital Signs - 24 hr 12/29/19 20:25 Temperature 36.9 C Heart Rate 61 Respiratory 18 Rate Blood Pressure 174/108 H O2 Saturation 99 Oxygen O2 Source Room air - EKG (time done) 2041 Rate: Rate (enter#) (73) Rhythm: NSR [place]: Normal Intervals: Normal [place] QRS: Normal, LVH Ischemia: ST elevation c/w repol - Labs Labs: Laboratory Tests 12/29/19 12/29/19 12/29/19 20:45 20:45 20:45 WBC 7.7 RBC 4.09 L Hgb 13.0 Hct 37.8 MCV 92.4 MCH 31.8 H MCHC 34.4 RDW 13.6 Plt Count 292 MPV 10.1 Neut # (Auto) 4.2 Lymph # (Auto) 2.8 [place] # (Auto) 0.5 Eos # (Auto) 0.2 Baso # (Auto) 0.1 Absolute Nucleated RBC 0.00 Nucleated RBC % 0.0 Sodium 136 Potassium 3.1 L Chloride 99 L Carbon Dioxide 24 Anion Gap 13.0 BUN 11 Creatinine 0.8 Estimated GFR (MDRD) 76 L Glucose 119 H Calcium 9.4 Phosphorus 3.6 Magnesium 2.0 Total Bilirubin 0.7 AST 85 H ALT 73 H Alkaline Phosphatase 59 Troponin I High Sens 5.9 Total Protein 7.1 Albumin 4.4 Globulin 2.7 Albumin/Globulin Ratio 1.6 Lipase 60 H - Rads (name of study) cxr Radiology: Prelim report reviewed, EMP read contemporaneously, See rad report PD MEDICAL DECISION MAKING - ED course Complexity details: reviewed results, re-evaluated patient, considered differential, d/w patient ED course: Patient with dehydration and hypokalemia. Potassium replaced. IV fluids given. Patient feels better. No acute findings on EKG. She is well-appearing, nontoxic. Afebrile. We will have her follow-up with her doctor for further care. Patient counseled regarding signs and symptoms for which I believe and urgent re-evaluation would be necessary. Patient with good understanding of and agreement to plan and is comfortable going home at this time This document was made in part using voice recognition software. While efforts are made to proofread this document, sound alike and grammatical errors may occur. The dog bite to the left ear is also healing well without signs of infection. Departure - Departure Clinical Impression: Dehydration, Hypokalemia Condition: Good Instructions: ED Dehydration, ED Potassium Deficiency Follow-Up: Stephany Tong ARNP [Primary Care Provider] - Within 1 week Comments: Follow-up with your doctor later this week for repeat evaluation. Return if you worsen. Make sure you are eating and drinking at home.
[2019-12-29 21:05] LABS: ALBUMIN 4.4 g/dL (3.2-5.5); ALBUMIN/GLOBULIN RATIO 1.6 (1.0-2.2); BILIRUBIN,TOTAL 0.7 mg/dL (0.2-1.0); CALCIUM 9.4 mg/dL (8.5-10.3); CREATININE 0.8 mg/dL (0.4-1.0); PHOSPHORUS 3.6 mg/dL (2.5-4.6); TOTAL PROTEIN 7.1 g/dL (6.7-8.2)
[2019-12-29] MEDS ORDERED: POTASSIUM CHLORIDE 20 MEQ TABLET PO STA (21:15)
[2019-12-29] MEDS ORDERED: SODIUM CHLORIDE 0.9% 1,000 ML IV STA (21:17)
--- NOTE | 2019-12-29 22:08 | XRAY Report ---
PROCEDURE: Chest 1 View X-Ray INDICATIONS: Chest Pain TECHNIQUE: One view of the chest was acquired. COMPARISON: Chest x-ray 03/28/2019 FINDINGS: Surgical changes and devices: None. Lungs and pleura: No pleural effusions or pneumothorax. Lungs are clear. Mediastinum: Mediastinal contours appear normal. Heart size is normal. Bones and chest wall: No suspicious bony lesions. Overlying soft tissues appear unremarkable. IMPRESSION: No acute pulmonary process. Reviewed by: Meagan Andres MD on 12/29/2019 10:06 PM PDT Approved by: Meagan Andres MD on 12/29/2019 10:06 PM PDT Station ID: [id number]
[2019-12-29 22:20] VITALS: BP 160/99
== END 2019-12-29 22:19 | disposition home or self-care (01) ==
LOC: ED 20:22
DX: E86.0 Dehydration (principal); E87.6 Hypokalemia; F17.200 Nicotine dependence, unspecified, uncomplicated
CPT/HCPCS: 36415; 71045; 80053; 83690; 83735; 84100; 84484; 85025; 93005; 96360; 99284; A9270

== ENCOUNTER 2020-01-29 14:23 | Outpatient (CLI) | payer MEDICAID ==
[2020-01-29 14:47] LABS: BASOPHILS # (AUTO) 0.1 10^3/uL (0.0-0.1); BASOPHILS % (AUTO) 0.6 %; EOSINOPHILS # (AUTO) 0.1 10^3/uL (0.0-0.7); EOSINOPHILS % (AUTO) 0.8 %; HGB - HEMOGLOBIN 13.5 g/dL (12.0-16.0); LYMPHOCYTES # (AUTO) 2.2 10^3/uL (1.5-3.5); LYMPHOCYTES % (AUTO) 24.8 %; MEAN CORPUSCULAR HEMOGLOBIN 32.3 pg (27.0-31.0); MEAN PLATELET VOLUME 10.7 fL (7.9-10.8); MONOCYTES # (AUTO) 0.7 10^3/uL (0.0-1.0); MONOCYTES % (AUTO) 7.6 %; NEUTROPHILS # (AUTO) 5.7 10^3/uL (1.5-6.6); PLT - PLATELET COUNT 294 10^3/uL (130-450); RED BLOOD COUNT 4.18 10^6/uL (4.20-5.40); RED CELL DISTRIBUTION WIDTH 13.4 % (12.0-15.0); WHITE BLOOD COUNT 8.7 x10^3/uL (4.8-10.8)
[2020-01-29 14:59] LABS: ALBUMIN 4.7 g/dL (3.2-5.5); ALBUMIN/GLOBULIN RATIO 1.6 (1.0-2.2); BILIRUBIN,TOTAL 0.8 mg/dL (0.2-1.0); CALCIUM 9.6 mg/dL (8.5-10.3); CREATININE 0.9 mg/dL (0.4-1.0); TOTAL PROTEIN 7.6 g/dL (6.7-8.2)
== END 2020-01-29 14:24 | disposition home or self-care (01) ==
LOC: LAB 14:23
PROVIDERS: ATTEND Family Medicine
DX: I10 Essential (primary) hypertension (principal); K21.9 Gastro-esophageal reflux disease without esophagitis
CPT/HCPCS: 36415; 80053; 85025

== ENCOUNTER 2020-03-13 12:58 | Outpatient (CLI) | payer MEDICAID ==
--- NOTE | 2020-03-16 13:39 | Mammography Report ---
BILATERAL DIGITAL SCREENING MAMMOGRAM 3D/2D: 03/13/2020 CLINICAL: Routine screening. Comparison is made to exams dated: 09/28/2017 mammogram and 04/01/2015 mammogram - [facility]. The tissue of both breasts is heterogeneously dense. This may lower the sensitivity of m ammography. No significant masses, calcifications, or other findings are seen in either breast. There has been no significant interval change. IMPRESSION: NEGATIVE There is no mammographic evidence of malignancy. A 1 year screening mammogram is recommended. This exam was interpreted at Station ID: [id number]. NOTE: For mammograms, a report in lay terms will be sent to the patient. Approximately 15% of breast malignancies will not be visualized mammographically. In the management of a palpable breast mass, a negative mammogram must not discourage biopsy of a clinically suspicious lesion. Electronically Signed By: Tony [email or web address]:03/13/2020 16:48:01 ACR BI-RADS Category 1: Negative 3341F PARENCHYMAL PATTERN: (D) - The breast(s) demonstrate(s) heterogeneously dense fibroglandular brandon morocho. BI-RADS CATEGORY: (1) - 1 RECOMMENDATION: (ANNUAL) - Recommend routine annual screening mammography. [id number] 1 year screening LATERALITY: (B)
== END 2020-03-13 12:59 | disposition home or self-care (01) ==
LOC: DI 12:58
PROVIDERS: ATTEND Registered Nurse
DX: Z12.31 Encounter for screening mammogram for malignant neoplasm of breast (principal)
CPT/HCPCS: 77063; 77067

== ENCOUNTER 2020-03-31 22:05 | Emergency (ER) | payer MEDICAID ==
--- NOTE | 2020-03-31 22:21 | ED Physician Documentation ---
History of Present Illness - Stated complaint Stated Complaint: RT FOOT NUMBNESS - Chief complaint Chief Complaint: Ext Problem - History obtained from History obtained from: Patient - History of Present Illness Pain level now: 2 Improved by: rest Worsened by: movement, weight-bearing - Additonal information Additional information: patient says she sustained injury in December which was suspected to be related to her right achilles tendon and thus she was placed in a walking boot orthotic. She says the pain has been ongoing since then and she has been back to her PMD regarding ongoing symptoms, was referred to orthopedics but soonest available appointment isn't until April. She again was seen by PMD 2 days ago, rx antihypertensive (has not picked it up from pharmacy yet). Her chief complaint is ongoing discomfort of the RLE which she suspects is due to her orthotic device (boot) not holding air (in the pockets). She says she saw someone earlier today regarding this problem but she was told she couldn't get a new one at this time due to insurance not covering another such device until more time has lapsed from previous rx. 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: Endometrial ablation - Present Medications Home Medications: Ambulatory Orders Medication Instructions Recorded Confirmed Omeprazole [PriLOSEC] 20 mg PO QDAC 05/26/16 05/21/19 Albuterol Sulfate [Proair Hfa 1 - 2 puffs INH Q4H PRN 10/24/17 05/21/19 Inhaler] Acetaminophen [Tylenol Extra 2 tab PO BID 05/21/19 05/21/19 Strength] Benzonatate [Tessalon Perle] 100 mg PO TID PRN #25 capsule 05/21/[address] [Voltaren] 75 mg PO BID 05/21/19 05/21/19 Doxycycline Monohydrate 100 mg PO BID #14 tablet 05/21/19 Duloxetine HCl 60 mg PO QPM 05/21/19 05/21/19 dexAMETHasone [Decadron] 4 mg PO DAILY #5 tablet 05/21/19 guaiFENesin/CODEINE [Robitussin AC] 10 ml PO Q6H PRN #240 ml 05/21/19 Albuterol Sulf [Ventolin Hfa 1 - 2 puffs INH Q4HR PRN #1 inhaler 05/28/19 Inhaler] Benzonatate [Tessalon Perle] 100 mg PO TID PRN #30 capsule 05/28/19 Cephalexin [Keflex] 500 mg PO TID #20 capsule 05/28/19 Hydrocodone/Acetaminophen [[place] 1 each PO Q6H PRN #20 tablet 05/28/19 5-325 Tablet] dexAMETHasone [Decadron] 4 mg PO DAILY #5 tablet 05/28/19 Clindamycin HCl [Clindamycin 300MG 300 mg PO Q6H #40 capsule 12/20/19 CAP] Doxycycline Hyclate 100 mg PO BID #20 capsule 12/20/19 - Allergies Allergies/Adverse Reactions: Allergies Allergy/AdvReac Type Severity Reaction Status Date / Time Penicillins Allergy Severe Rash Verified 03/31/20 22:17 - Social History Does the pt smoke?: Yes Smoking Status: Current every day smoker Does the pt drink ETOH?: Yes Does the pt have substance abuse?: No - Immunizations Immunizations are current?: Yes - POLST Patient has POLST: No PD ED PE NORMAL - Vitals Vital signs reviewed: Yes - General General: Alert and oriented X 3, No acute distress, Well developed/nourished - Extremities Extremities: No tenderness to palpate, No edema, No calf tenderness / cord, Other (negative right Kim's test (plantarflexion noted with squeezing of right calf)) - Neuro Neuro: No motor deficit, No sensory deficit PD ED PE EXPANDED - Derm SKin visual: 1 - rash (flat, faint erythema without fluctuance or discharge c/w irrit ation/friction due to RLE orthotic/boot) Results - Vitals Vitals: Oxygen O2 Source Room air PD MEDICAL DECISION MAKING - ED course Complexity details: considered differential, d/w patient ED course: patient's c/o seem to be related to problems arising from her RLE orthotic device/boot not being able to retain air in the pockets meant to allow proper fit of the device, causing irritation to the anterior pretibial surface and ongoing discomfort of right heel and posterior aspect of distal leg (since injury in December). She is provided a new boot but no testing nor other emergent treatment indicated at this time. Departure - Departure Disposition: 01 Home, Self Care Clinical Impression: Pain of lower extremity Qualifiers: Laterality: right Qualified Code(s): M79.604 - Pain in right leg Condition: Good Instructions: ED Strain Muscle Ext Follow-Up: Stephany Tong ARNP [Primary Care Provider] - Discharge Date/Time: 03/31/20 23:07
[2020-03-31 23:10] VITALS: BP 154/89
== END 2020-03-31 23:07 | disposition home or self-care (01) ==
LOC: ED 22:05
DX: M79.604 Pain in right leg (principal); F17.200 Nicotine dependence, unspecified, uncomplicated
CPT/HCPCS: 99282

== ENCOUNTER 2020-04-16 12:39 | Inpatient (IN) | payer MEDICAID ==
[2020-04-16] MEDS ORDERED: LACTATED RINGERS 1,000 ML IV ONE ×3 (13:00→17:07)
[2020-04-16] MEDS ORDERED: MIDAZOLAM 2 MG/2 ML VIAL IVP ONE ×2 (13:36→15:12)
[2020-04-16] MEDS ORDERED: fentaNYL 250 MCG/5 ML VIAL IVP ONE (13:36)
[2020-04-16] MEDS ORDERED: GLUCAGON 1 MG/ML VIAL IM ONE (13:36)
--- NOTE | 2020-04-16 14:13 | ANESTHESIA ---
Pre-Anesthesia VS, & Labs - Diagnosis bowel perforation w/cscope - Procedure exploratory laparoscopy Vital Signs: Temp Pulse Resp BP Pulse Ox 36 C L 72 14 129/76 94 04/16/20 14:02 04/16/20 14:02 04/16/20 14:02 04/16/20 14:02 04/16/20 14:02 Height: 5 ft 6.5 in Weight (kg): 56 kg Body Mass Index: 19.6 BMI Classification: Healthy weight - NPO >8 hours - Is Patient ?: No, Not Applicable Home Medications and Allergies Home Medications: Ambulatory Orders Losartan [Cozaar] 50 mg PO DAILY 04/15/20 Omeprazole [PriLOSEC] 20 mg PO QDAC 05/26/16 Albuterol Sulfate [Proair Hfa Inhaler] 1 - 2 puffs INH Q4H PRN 10/24/17 Losartan [Cozaar] 50 mg PO DAILY 04/15/20 Allergies/Adverse Reactions: Allergies Allergy/AdvReac Type Severity Reaction Status Date / Time Penicillins Allergy Severe Anaphylaxis Verified 04/15/20 15:03 amlodipine AdvReac Unknown Verified 04/16/20 12:59 Anes History & Medical History - Medical History Cardiovascular: reports: Hypertension Pulmonary: reports: Asthma Gastrointestinal: reports: None Urinary: reports: None Musculoskeletal: reports: None Endocrine/Autoimmune: reports: None Skin: reports: None Smoking Status: Current every day smoker - Surgical History General: EGD Gynecologic: Endometrial ablation, 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 Orthopedic: Other Plan Anesthesia Type: General Consent for Procedure(s) Verified and Reviewed: Yes Code Status: Attempt Resuscitation ASA classification: 2-Mild systemic disease Is this case an emergency?: Yes
[2020-04-16] MEDS ORDERED: PIPERACILLIN/TAZOBACTAM 3.375 GM in SODIUM CHLORIDE 0.9% MINIBAG 100 ML IV ONE (14:26)
[2020-04-16] MEDS ORDERED: BUPIVACAINE 0.5% PF 30 ML VIAL ONE (14:39)
[2020-04-16] MEDS ORDERED: LIDOCAINE 1%-EPI 1:100000 20 ML MDV ONE (14:39)
[2020-04-16] MEDS ORDERED: ONDANSETRON 4 MG/2 ML VIAL ONE (15:01)
[2020-04-16] MEDS ORDERED: ROCURONIUM 50 MG/5 ML VIAL IVP ONE (15:12)
[2020-04-16] MEDS ORDERED: fentaNYL 100 MCG/2 ML VIAL IVP ONE (15:12)
[2020-04-16] MEDS ORDERED: NEOSTIGMINE 1 MG/1 ML 10 ML MDV IVP ONE (15:12)
[2020-04-16] MEDS ORDERED: ACETAMINOPHEN 1,000 MG/100 ML 100 ML IV ONE (15:12)
[2020-04-16] MEDS ORDERED: PROPOFOL 200 MG/20 ML VIAL IVP ONE (15:12)
[2020-04-16] MEDS ORDERED: GLYCOPYRROLATE 1 MG/5 ML VIAL IVP ONE (15:12)
[2020-04-16] MEDS ORDERED: LIDOCAINE-MPF 2% 5 ML VIAL IM ONE (15:12)
[2020-04-16] MEDS ORDERED: DEXAMETHASONE 4 MG/ML VIAL IVP ONE (15:12)
[2020-04-16] MEDS ORDERED: BUPIVACAINE 0.5%-EPI 1:200000 PF 30 ML VIAL SUBQ ONE ×2 (15:45→16:35)
[2020-04-16] MEDS ORDERED: LIDOCAINE 1% 50 ML MDV SUBQ ONE ×2 (15:45→16:35)
[2020-04-16] MEDS ORDERED: ONDANSETRON 4 MG/2 ML VIAL IVP PRN (15:51)
[2020-04-16] MEDS ORDERED: METOCLOPRAMIDE 10 MG/2 ML VIAL IVP PRN (15:51)
[2020-04-16] MEDS ORDERED: fentaNYL 100 MCG/2 ML VIAL IVP PRN (15:51)
[2020-04-16] MEDS ORDERED: ePHEDrine 50 MG/ML VIAL IVP PRN (15:51)
[2020-04-16] MEDS ORDERED: MORPHINE 2 MG/ML CARPUJECT IVP PRN (15:51)
[2020-04-16] MEDS ORDERED: ATROPINE ABBOJECT 1 MG/10 ML SYRINGE IVP PRN (15:51)
[2020-04-16] MEDS ORDERED: NALOXONE 0.4 MG/ML VIAL IVP PRN (15:51)
[2020-04-16] MEDS ORDERED: LACTATED RINGERS 1,000 ML IV SCH (16:00)
[2020-04-16] MEDS: HYDROmorphone 0.5 MG/0.5 ML SYRINGE IVP PRN ×4 (17:34→23:27)
[2020-04-16] MEDS ORDERED: HYDROmorphone 1 MG/ML CARPUJECT ONE (17:41)
--- NOTE | 2020-04-16 17:51 | ANESTHESIA POST OP EVALUATION ---
Anesthesia Post Eval - Post Anesthesia Eval Vitals: Last Vital Signs Temp 36.4 C L 04/16/20 17:49 Pulse 72 04/16/20 17:49 Resp 16 04/16/20 17:49 BP 130/68 04/16/20 17:49 Pulse Ox 95 04/16/20 17:49 CV Function Including HR & BP: positive: Stable Pain Control: positive: Satisfactory Nausea & Vomiting: positive: Negative Mental Status: positive: Baseline Respiratory Status: Airway Patent Hydration Status: Satisfactory Anesthesia Complications: positive: None
[2020-04-16] MEDS ORDERED: LORazepam 2 MG/ML VIAL IVP PRN (17:57)
[2020-04-16] MEDS ORDERED: KETOROLAC 30 MG/ML VIAL IVP PRN (17:57)
[2020-04-16] MEDS ORDERED: HYDROmorphone 1 MG/ML CARPUJECT IVP PRN (17:57)
[2020-04-16] MEDS: LACTATED RINGERS 1,000 ML IV SCH (18:30)
[2020-04-16] MEDS: ACETAMINOPHEN 1,000 MG/100 ML 100 ML IV SCH ×2 (18:53→23:30)
[2020-04-16] MEDS: levoFLOXacin 500 MG/100 ML 500 MG/100 ML BAG IV SCH (19:33)
[2020-04-16] MEDS: SODIUM CHLORIDE FLUSH 0.9% 10 ML SYRINGE IVP SCH (21:52)
[2020-04-17] MEDS: HYDROmorphone 0.5 MG/0.5 ML SYRINGE IVP PRN ×5 (02:13→16:10)
[2020-04-17 04:59] LABS: BASOPHILS # (AUTO) 0.1 10^3/uL (0.0-0.1); BASOPHILS % (AUTO) 0.4 %; EOSINOPHILS # (AUTO) 0.2 10^3/uL (0.0-0.7); EOSINOPHILS % (AUTO) 1.5 %; HGB - HEMOGLOBIN 12.3 g/dL (12.0-16.0); LYMPHOCYTES # (AUTO) 0.8 10^3/uL (1.5-3.5); LYMPHOCYTES % (AUTO) 4.9 %; MEAN CORPUSCULAR HEMOGLOBIN 32.1 pg (27.0-31.0); MEAN CORPUSCULAR HGB CONC 32.8 g/dL (32.0-36.0); MEAN CORPUSCULAR VOLUME 97.9 fL (81.0-99.0); MEAN PLATELET VOLUME 10.9 fL (7.9-10.8); MONOCYTES # (AUTO) 0.3 10^3/uL (0.0-1.0); NEUTROPHILS # (AUTO) 14.3 10^3/uL (1.5-6.6); NEUTROPHILS % (AUTO) 90.7 %; PLT - PLATELET COUNT 256 10^3/uL (130-450); RED BLOOD COUNT 3.83 10^6/uL (4.20-5.40); RED CELL DISTRIBUTION WIDTH 12.5 % (12.0-15.0); WHITE BLOOD COUNT 15.8 x10^3/uL (4.8-10.8)
[2020-04-17 05:08] LABS: CALCIUM 8.6 mg/dL (8.5-10.3)
[2020-04-17] MEDS: LACTATED RINGERS 1,000 ML IV SCH ×2 (05:28→15:09)
[2020-04-17] MEDS: ACETAMINOPHEN 1,000 MG/100 ML 100 ML IV SCH ×3 (05:34→17:00)
[2020-04-17] MEDS: ONDANSETRON 4 MG/2 ML VIAL IVP PRN (05:53)
[2020-04-17] MEDS: PANTOPRAZOLE 40 MG VIAL IVP SCH (06:05)
[2020-04-17] MEDS: ENOXAPARIN 40 MG/0.4 ML SYRINGE SUBQ SCH (09:05)
[2020-04-17] MEDS: SODIUM CHLORIDE FLUSH 0.9% 10 ML SYRINGE IVP SCH ×2 (09:06→16:11)
[2020-04-17] MEDS: SODIUM CHLORIDE FLUSH 0.9% 10 ML SYRINGE IVP PRN ×2 (12:15→19:50)
--- NOTE | 2020-04-17 13:56 | PROVIDER PROGRESS NOTE ---
Subjective - General Admit Date: 04/16/20 Procedure Date: 04/16/20 Post Op Days: 1 Procedure Performed: Diagnostic laparoscopy with repair of colonic perforation - Review of Systems Wound/Incisions: positive: Healing well Drain Type: Freddy Drain Output Description: Thin and serous General: positive: No symptoms HEENT: positive: No symptoms Pulmonary: positive: No symptoms Cardiovascular: positive: No symptoms Gastrointestinal: positive: Nausea, Vomiting, Other (Pain at the incision sites and left abdomen) Genitourinary: positive: No symptoms Musculoskeletal: positive: No symptoms Objective - Patient Data Reviewed Vital Signs: Yes Vital Signs: Vital Signs x48h Temp Pulse Pulse Resp BP Pulse Ox 04/17/20 12:40 37 C 74 17 97 04/17/20 11:44 37.0 C 83 20 121/68 97 04/17/20 07:49 36.6 C 79 20 118/71 98 04/17/20 07:00 62 16 108/60 96 04/17/20 06:00 77 20 114/81 H 97 Weight: Weight 04/15/20 04/16/20 04/17/20 23:59 23:59 23:59 Weight (kg) 61.5 kg Intake & Output: Intake and Output Totals x24h 04/15/20 04/16/20 04/17/20 23:59 23:59 23:59 Intake Total 967.435 8259.334 Output Total 550 1020 Balance 524.162 0891.334 - Lab Results Lab Results: 04/17/20 04:38 04/17/20 04:38 Other Lab Results: Lab Results x24hrs 04/17/20 04/17/20 04/17/20 Range/Units 04:38 04:38 00:21 WBC 15.8 H (4.8-10.8) x10^3/uL RBC 3.83 L (4.20-5.40) 10^6/uL Hgb 12.3 (12.0-16.0) g/dL Hct 37.5 (37.0-47.0) % MCV 97.9 (81.0-99.0) fL MCH 32.1 H (27.0-31.0) pg MCHC 32.8 (32.0-36.0) g/dL RDW 12.5 (12.0-15.0) % Plt Count 256 (130-450) 10^3/uL MPV 10.9 H (7.9-10.8) fL Neut # (Auto) 14.3 H (1.5-6.6) 10^3/uL Lymph # (Auto) 0.8 L (1.5-3.5) 10^3/uL [place] # (Auto) 0.3 (0.0-1.0) 10^3/uL Eos # (Auto) 0.2 (0.0-0.7) 10^3/uL Baso # (Auto) 0.1 (0.0-0.1) 10^3/uL Absolute Nucleated RBC 0.00 x10^3/uL Nucleated RBC % 0.0 /100WBC Sodium 134 L (135-145) mmol/L Potassium 3.4 L (3.5-5.0) mmol/L Chloride 98 L (101-111) mmol/L Carbon Dioxide 25 (21-32) mmol/L Anion Gap 11.0 (6-13) BUN 13 (6-20) mg/dL Creatinine 1.0 (0.4-1.0) mg/dL Estimated GFR (MDRD) 58 L (>89) Glucose 136 H (70-100) mg/dL Calcium 8.6 (8.5-10.3) mg/dL Nasal Screen MRSA (PCR) NEGATIVE (NEGATIVE) - Current Medications Current Medications: Current Medications Generic Name Dose Route Start Last Admin Trade Name Freq PRN Reason Stop Dose Admin Enoxaparin Sodium 40 mg 04/17/20 09:00 04/17/20 09:05 Lovenox SUBQ 40 mg DAILY ANA Administration Hydromorphone HCl 0.5 mg 04/16/20 20:48 04/17/20 12:15 Dilaudid Inj Syringe IVP 0.5 mg Q1H PRN Administration PAIN Lactated Ringer's 1,000 mls @ 100 mls/hr 04/16/20 18:00 04/17/20 09:00 Lr IV 0 mls/hr .Q10H ANA Infusion Acetaminophen 100 mls @ 400 mls/hr 04/16/20 18:00 04/17/20 12:35 Ofirmev IV Infused Q6H ANA Infusion Levofloxacin 500 mg in 100 mls @ 100 mls/hr 04/16/20 19:00 04/16/20 20:34 Levaquin 500 Mg/100 Ml IV Infused Q24H ANA Infusion Ketorolac Tromethamine 30 mg 04/16/20 17:57 04/16/20 21:51 Toradol Inj (30mg) IVP 04/21/20 17:56 30 mg Q6H PRN Administration PAIN Ondansetron HCl 4 mg 04/16/20 17:57 04/17/20 05:53 Zofran Inj IVP 4 mg Q6H PRN Administration Nausea / Vomiting Pantoprazole Sodium 40 mg 04/17/20 07:00 04/17/20 06:05 Protonix IVP 40 mg QDAC ANA Administration Sodium Chloride 10 ml 04/17/20 01:00 04/17/20 09:06 Normal Saline Flush 0.9% IVP 10 ml 0100,0900,1700 ANA Administration Sodium Chloride 10 ml 04/16/20 17:46 04/17/20 12:15 Normal Saline Flush 0.9% IVP 10 ml PRN PRN Administration NEEDED PER PROVIDER ORDERS - Physical Exam Wound/Incisions: positive: Healing well General Appearance: positive: No acute distress, Alert Eyes Bilateral: positive: Normal inspection, PERRL, EOMI ENT: positive: ENT inspection nml, Pharynx nml, No signs of dehydration Neck: positive: Nml inspection Respiratory: positive: Chest non-tender, No respiratory distress, Breath sounds nml Cardiovascular: positive: Regular rate & rhythm, No murmur, No gallop Abdomen: positive: Nml bowel sounds, Tenderness (Appropriately tender). negative: Guarding, Rebound Skin: positive: Color nml Extremities: positive: Non-tender Neurologic/Psychiatric: positive: Oriented x3 ABX Reporting Has patient been on IV antibiotics over the past 48 hours?: Yes Impression/Plan - Problem List Problem List: Status post perforated viscus at the time of colonoscopy with laparoscopic repair. She is doing well today. We will advance her diet and encourage ambulation. Try to transition to oral pain meds in the next 24 hours if nausea resolved and she is able to tolerate po intake
[2020-04-17] MEDS: levoFLOXacin 500 MG/100 ML 500 MG/100 ML BAG IV SCH (17:50)
[2020-04-17] MEDS: KETOROLAC 30 MG/ML VIAL IVP SCH (19:48)
[2020-04-18] MEDS: LACTATED RINGERS 1,000 ML IV SCH ×2 (00:14→13:51)
[2020-04-18] MEDS: KETOROLAC 30 MG/ML VIAL IVP SCH ×4 (00:26→18:30)
[2020-04-18] MEDS: SODIUM CHLORIDE FLUSH 0.9% 10 ML SYRINGE IVP SCH ×5 (00:26→18:30)
[2020-04-18] MEDS: ACETAMINOPHEN 1,000 MG/100 ML 100 ML IV SCH ×4 (00:27→18:41)
[2020-04-18] MEDS: HYDROmorphone 0.5 MG/0.5 ML SYRINGE IVP PRN ×2 (00:43→16:53)
[2020-04-18] MEDS: SODIUM CHLORIDE FLUSH 0.9% 10 ML SYRINGE IVP PRN ×2 (01:38→07:06)
[2020-04-18 06:05] LABS: BASOPHILS % (AUTO) 0.2 %; EOSINOPHILS % (AUTO) 0.2 %; HGB - HEMOGLOBIN 12.4 g/dL (12.0-16.0); LYMPHOCYTES # (AUTO) 0.8 10^3/uL (1.5-3.5); LYMPHOCYTES % (AUTO) 6.7 %; MEAN CORPUSCULAR HEMOGLOBIN 31.7 pg (27.0-31.0); MEAN CORPUSCULAR HGB CONC 32.1 g/dL (32.0-36.0); MEAN CORPUSCULAR VOLUME 98.7 fL (81.0-99.0); MEAN PLATELET VOLUME 11.2 fL (7.9-10.8); MONOCYTES # (AUTO) 0.3 10^3/uL (0.0-1.0); MONOCYTES % (AUTO) 2.2 %; NEUTROPHILS # (AUTO) 11.3 10^3/uL (1.5-6.6); PLT - PLATELET COUNT 239 10^3/uL (130-450); RED BLOOD COUNT 3.91 10^6/uL (4.20-5.40); RED CELL DISTRIBUTION WIDTH 12.3 % (12.0-15.0); WHITE BLOOD COUNT 12.6 x10^3/uL (4.8-10.8)
[2020-04-18 06:14] LABS: CALCIUM 8.9 mg/dL (8.5-10.3); CREATININE 0.8 mg/dL (0.4-1.0)
[2020-04-18] MEDS: PANTOPRAZOLE 40 MG VIAL IVP SCH (07:06)
--- NOTE | 2020-04-18 08:08 | PHARMACY PROGRESS NOTE ---
- Best Possible Medication History Admit Date and Time: 04/16/20 1746 Processed by: Nursing Medication History completed: Yes As the person ultimately responsible for medication therapy, providers are able to order a medication from an existing home medication list in [facility] via the "Reconcile Routine" prior to Confirmation of that medication by direct support staff. Such practice is discouraged except when the physician, in their clinical judgment, deems that a medical need exists for a medication without regard to previous use.
[2020-04-18] MEDS: ENOXAPARIN 40 MG/0.4 ML SYRINGE SUBQ SCH (09:17)
--- NOTE | 2020-04-18 13:14 | PROVIDER PROGRESS NOTE ---
Subjective - General Admit Date: 04/16/20 Procedure Date: 04/16/20 Post Op Days: 2 Procedure Performed: Diagnostic laparoscopy with repair of colonic perforation - Review of Systems Wound/Incisions: positive: Healing well Drain Type: Freddy Drain Output Description: Thin and serous General: positive: No symptoms HEENT: positive: No symptoms Pulmonary: positive: No symptoms Cardiovascular: positive: No symptoms Gastrointestinal: positive: Nausea, Vomiting, Other (Pain at the incision sites and left abdomen) Genitourinary: positive: No symptoms Musculoskeletal: positive: No symptoms - Other Other Information/Narrative: PO intake has been minimal. She denies any nausea and reports her abdomen is softer and "jigglier" than it was yesterday but she still isnt hungry. She says nothing tastes good to her but the broth. Still store but pain is reasonably well controlled. Objective - Patient Data Reviewed Vital Signs: Yes Vital Signs: Vital Signs x48h Temp Pulse Resp BP Pulse Ox 04/18/20 11:42 36.5 C 79 16 154/73 H 98 04/18/20 07:45 36.4 C L 88 16 140/82 H 97 Weight: Weight 04/16/20 04/17/20 04/18/20 23:59 23:59 23:59 Weight (kg) 61.5 kg Intake & Output: Intake and Output Totals x24h 04/16/20 04/17/20 04/18/20 23:59 23:59 23:59 Intake Total 361.438 3383.667 440 Output Total 550 1030 10 Balance 381.290 3688.667 430 - Lab Results Lab Results: 04/18/20 05:38 04/18/20 05:38 Other Lab Results: Lab Results x24hrs 04/18/20 04/18/20 Range/Units 05:38 05:38 WBC 12.6 H (4.8-10.8) x10^3/uL RBC 3.91 L (4.20-5.40) 10^6/uL Hgb 12.4 (12.0-16.0) g/dL Hct 38.6 (37.0-47.0) % MCV 98.7 (81.0-99.0) fL MCH 31.7 H (27.0-31.0) pg MCHC 32.1 (32.0-36.0) g/dL RDW 12.3 (12.0-15.0) % Plt Count 239 (130-450) 10^3/uL MPV 11.2 H (7.9-10.8) fL Neut # (Auto) 11.3 H (1.5-6.6) 10^3/uL Lymph # (Auto) 0.8 L (1.5-3.5) 10^3/uL [place] # (Auto) 0.3 (0.0-1.0) 10^3/uL Eos # (Auto) 0.0 (0.0-0.7) 10^3/uL Baso # (Auto) 0.0 (0.0-0.1) 10^3/uL Absolute Nucleated RBC 0.00 x10^3/uL Nucleated RBC % 0.0 /100WBC Sodium 136 (135-145) mmol/L Potassium 3.5 (3.5-5.0) mmol/L Chloride 100 L (101-111) mmol/L Carbon Dioxide 25 (21-32) mmol/L Anion Gap 11.0 (6-13) BUN 9 (6-20) mg/dL Creatinine 0.8 (0.4-1.0) mg/dL Estimated GFR (MDRD) 76 L (>89) Glucose 90 (70-100) mg/dL Calcium 8.9 (8.5-10.3) mg/dL - Current Medications Current Medications: Current Medications Generic Name Dose Route Start Last Admin Trade Name Freq PRN Reason Stop Dose Admin Enoxaparin Sodium 40 mg 04/17/20 09:00 04/18/20 09:17 Lovenox SUBQ 40 mg DAILY ANA Administration Hydromorphone HCl 0.5 mg 04/16/20 20:48 04/18/20 00:43 Dilaudid Inj Syringe IVP 0.5 mg Q1H PRN Administration PAIN Lactated Ringer's 1,000 mls @ 100 mls/hr 04/16/20 18:00 04/18/20 00:14 Lr IV Not Given .Q10H ANA Acetaminophen 100 mls @ 400 mls/hr 04/16/20 18:00 04/18/20 12:28 Ofirmev IV 100 mls/hr Q6H ANA Administration Levofloxacin 500 mg in 100 mls @ 100 mls/hr 04/16/20 19:00 04/17/20 19:00 Levaquin 500 Mg/100 Ml IV Infused Q24H ANA Infusion Ketorolac Tromethamine 30 mg 04/17/20 20:00 04/18/20 12:29 Toradol Inj (30mg) IVP 04/22/20 19:59 30 mg Q6HR ANA Administration Ondansetron HCl 4 mg 04/16/20 17:57 04/17/20 05:53 Zofran Inj IVP 4 mg Q6H PRN Administration Nausea / Vomiting Pantoprazole Sodium 40 mg 04/17/20 07:00 04/18/20 07:06 Protonix IVP 40 mg QDAC ANA Administration Sodium Chloride 10 ml 04/17/20 01:00 04/18/20 09:18 Normal Saline Flush 0.9% IVP 10 ml 0100,0900,1700 ANA Administration Sodium Chloride 10 ml 04/16/20 17:46 04/18/20 07:06 Normal Saline Flush 0.9% IVP 20 ml PRN PRN Administration NEEDED PER PROVIDER ORDERS - Physical Exam Wound/Incisions: positive: Healing well, Dressing dry and intact, Other (minimal bruising around the umbilical incision) General Appearance: positive: No acute distress, Alert Eyes Bilateral: positive: Normal inspection, PERRL, EOMI ENT: positive: ENT inspection nml, Pharynx nml Neck: positive: Nml inspection, Thyroid nml, No JVD Respiratory: positive: Chest non-tender, No respiratory distress, Breath sounds nml Cardiovascular: positive: Regular rate & rhythm, No murmur Abdomen: positive: Nml bowel sounds (mildly distended but soft), Other Impression/Plan - Problem List Problem List: Colon perforation day #2. Mild ileus. Continue Reglan and other pain medications. She is encouraged only to eat what she desires. I will restart IV fluids at a lower rate. Recheck labs in the AM and KUB.
[2020-04-18] MEDS ORDERED: LACTATED RINGERS 1,000 ML IV SCH (14:00)
[2020-04-18] MEDS: levoFLOXacin 500 MG/100 ML 500 MG/100 ML BAG IV SCH (18:56)
[2020-04-19] MEDS: METOCLOPRAMIDE 10 MG/2 ML VIAL IVP PRN ×2 (00:05→09:19)
[2020-04-19] MEDS: HYDROmorphone 0.5 MG/0.5 ML SYRINGE IVP PRN ×2 (00:06→05:57)
[2020-04-19] MEDS: ACETAMINOPHEN 1,000 MG/100 ML 100 ML IV SCH ×4 (00:07→17:17)
[2020-04-19] MEDS: KETOROLAC 30 MG/ML VIAL IVP SCH ×3 (05:57→12:25)
[2020-04-19] MEDS: PANTOPRAZOLE 40 MG VIAL IVP SCH (06:03)
[2020-04-19 06:06] LABS: BASOPHILS % (AUTO) 0.2 %; EOSINOPHILS # (AUTO) 0.1 10^3/uL (0.0-0.7); EOSINOPHILS % (AUTO) 0.6 %; HGB - HEMOGLOBIN 13.6 g/dL (12.0-16.0); LYMPHOCYTES # (AUTO) 0.8 10^3/uL (1.5-3.5); LYMPHOCYTES % (AUTO) 5.9 %; MEAN CORPUSCULAR HEMOGLOBIN 32.7 pg (27.0-31.0); MEAN CORPUSCULAR HGB CONC 33.7 g/dL (32.0-36.0); MEAN CORPUSCULAR VOLUME 97.1 fL (81.0-99.0); MEAN PLATELET VOLUME 10.6 fL (7.9-10.8); MONOCYTES # (AUTO) 0.4 10^3/uL (0.0-1.0); MONOCYTES % (AUTO) 2.8 %; NEUTROPHILS # (AUTO) 12.7 10^3/uL (1.5-6.6); NEUTROPHILS % (AUTO) 89.9 %; PLT - PLATELET COUNT 272 10^3/uL (130-450); RED BLOOD COUNT 4.16 10^6/uL (4.20-5.40); WHITE BLOOD COUNT 14.2 x10^3/uL (4.8-10.8)
[2020-04-19 06:19] LABS: CALCIUM 9.3 mg/dL (8.5-10.3); CREATININE 0.7 mg/dL (0.4-1.0)
[2020-04-19] MEDS: LACTATED RINGERS 1,000 ML IV SCH ×2 (07:28→07:29)
--- NOTE | 2020-04-19 08:15 | XRAY Report ---
PROCEDURE: Abdomen 2 View X-Ray INDICATIONS: Ileus TECHNIQUE: 2 views of the abdomen were acquired. COMPARISON: None available FINDINGS: Surgical changes and devices: A left lower quadrant drain is seen. Incidental note is made of body or namentation artifact. Bowel: There is a small amount of pneumoperitoneum. Dilated, gas-filled loops of small bowel are seen , measuring up to 3.3 cm. No pathologic differential air-fluid levels are seen. Soft tissues: No masses; visualized solid organ contours appear normal in size. No suspicious abdom inal calcifications. Bones: No suspicious bony abnormalities. Age-appropriate degenerative changes are seen. Mild dextr oconvex scoliotic curvature is seen. IMPRESSION: These imaging findings are most compatible with the given clinical history of ileus. A small amount of pneumoperitoneum is seen. Left lower quadrant drain seen. Reviewed by: Jeffy Joe MD on 04/19/2020 7:14 AM [facility] Approved by: Jeffy Joe MD on 04/19/2020 7:14 AM [facility] Station ID: [id number]
--- NOTE | 2020-04-19 08:30 | PROVIDER PROGRESS NOTE ---
Subjective - General Admit Date: 04/16/20 Procedure Date: 04/16/20 Post Op Days: 3 Procedure Performed: Diagnostic laparoscopy with repair of colonic perforation - Review of Systems Wound/Incisions: positive: Healing well, Dressing dry and intact, Other (minimal bruising around the umbilical incision) Drain Type: Freddy Drain Output Description: Thin and serous General: positive: No symptoms HEENT: positive: No symptoms Pulmonary: positive: No symptoms Cardiovascular: positive: No symptoms Gastrointestinal: positive: Nausea, Vomiting, Other (Pain at the incision sites and left abdomen) Genitourinary: positive: No symptoms Musculoskeletal: positive: No symptoms - Other Other Information/Narrative: Roberta reports feeling subjectively improved today. She had an episode of emesis this morning. She reports she did not feel nauseated at the time and it was when she was receiving a medication. She doesn't feel hungry and adds that she d oesn't eat much at home. Has not passed flatus but reports she feels it "moving around in there". Her pain is improved today and she reports it is more of an ache now. Objective - Patient Data Vital Signs: Vital Signs x48h Temp Pulse Resp BP Pulse Ox 04/19/20 08:02 37.0 C 10 L 18 134/89 H 96 04/19/20 06:06 37.2 C 88 151/96 H 94 Intake & Output: Intake and Output Totals x24h 04/17/20 04/18/20 04/19/20 23:59 23:59 22:59 Intake Total 2988.667 1480 100 Output Total 1030 20 505 Balance 4154.361 5868 -405 - Lab Results Lab Results: 04/19/20 06:00 04/19/20 06:00 Other Lab Results: Lab Results x24hrs 04/19/20 04/19/20 Range/Units 06:00 06:00 WBC 14.2 H (4.8-10.8) x10^3/uL RBC 4.16 L (4.20-5.40) 10^6/uL Hgb 13.6 (12.0-16.0) g/dL Hct 40.4 (37.0-47.0) % MCV 97.1 (81.0-99.0) fL MCH 32.7 H (27.0-31.0) pg MCHC 33.7 (32.0-36.0) g/dL RDW 12.0 (12.0-15.0) % Plt Count 272 (130-450) 10^3/uL MPV 10.6 (7.9-10.8) fL Neut # (Auto) 12.7 H (1.5-6.6) 10^3/uL Lymph # (Auto) 0.8 L (1.5-3.5) 10^3/uL [place] # (Auto) 0.4 (0.0-1.0) 10^3/uL Eos # (Auto) 0.1 (0.0-0.7) 10^3/uL Baso # (Auto) 0.0 (0.0-0.1) 10^3/uL Absolute Nucleated RBC 0.00 x10^3/uL Nucleated RBC % 0.0 /100WBC Sodium 136 (135-145) mmol/L Potassium 3.3 L (3.5-5.0) mmol/L Chloride 99 L (101-111) mmol/L Carbon Dioxide 27 (21-32) mmol/L Anion Gap 10.0 (6-13) BUN 8 (6-20) mg/dL Creatinine 0.7 (0.4-1.0) mg/dL Estimated GFR (MDRD) 88 L (>89) Glucose 101 H (70-100) mg/dL Calcium 9.3 (8.5-10.3) mg/dL - Imaging Results Imaging Results Comments: Abdominal xray this AM most consistent with ileus - Current Medications Current Medications: Current Medications Generic Name Dose Route Start Last Admin Trade Name Freq PRN Reason Stop Dose Admin Enoxaparin Sodium 40 mg 04/17/20 09:00 04/18/20 09:17 Lovenox SUBQ 40 mg DAILY ANA Administration Hydromorphone HCl 0.5 mg 04/16/20 20:48 04/19/20 05:57 Dilaudid Inj Syringe IVP 0.5 mg Q1H PRN Administration PAIN Acetaminophen 100 mls @ 400 mls/hr 04/16/20 18:00 04/19/20 06:38 Ofirmev IV Infused Q6H ANA Infusion Levofloxacin 500 mg in 100 mls @ 100 mls/hr 04/16/20 19:00 04/18/20 19:56 Levaquin 500 Mg/100 Ml IV Infused Q24H ANA Infusion Ketorolac Tromethamine 30 mg 04/17/20 20:00 04/19/20 05:57 Toradol Inj (30mg) IVP 04/22/20 19:59 30 mg Q6HR ANA Administration Metoclopramide HCl 5 mg 04/17/20 17:11 04/19/20 00:05 Reglan Inj IVP 5 mg Q8HR PRN Administration Nausea / Vomiting Ondansetron HCl 4 mg 04/16/20 17:57 04/17/20 05:53 Zofran Inj IVP 4 mg Q6H PRN Administration Nausea / Vomiting Pantoprazole Sodium 40 mg 04/17/20 07:00 04/19/20 06:03 Protonix IVP 40 mg QDAC ANA Administration Sodium Chloride 10 ml 04/17/20 01:00 04/18/20 18:30 Normal Saline Flush 0.9% IVP 10 ml 0100,0900,1700 ANA Administration Sodium Chloride 10 ml 04/16/20 17:46 04/18/20 07:06 Normal Saline Flush 0.9% IVP 20 ml PRN PRN Administration NEEDED PER PROVIDER ORDERS - Physical Exam Wound/Incisions: positive: Healing well, Other (Bruising around the umbilical incision) General Appearance: positive: No acute distress Eyes Bilateral: positive: Normal inspection ENT: positive: ENT inspection nml Neck: positive: Nml inspection Respiratory: positive: Chest non-tender Cardiovascular: positive: Regular rate & rhythm Abdomen: positive: Other (Mildly distended and appropriately tender to palpation. Active bowel sounds) Extremities: positive: Non-tender ABX Reporting Has patient been on IV antibiotics over the past 48 hours?: Yes Impression/Plan - Problem List Problem List: Revert back to liquid diet with ileus. Encourage ambulation. Recheck labs in the AM. Continue watchful waiting.
[2020-04-19] MEDS ORDERED: HYDROmorphone 0.5 MG/0.5 ML SYRINGE IVP PRN (08:41)
[2020-04-19] MEDS: PREGABALIN 25 MG CAPSULE PO SCH ×2 (09:18→20:08)
[2020-04-19] MEDS: D5NS W/20 MEQ KCL 1,000 ML IV SCH (09:18)
[2020-04-19] MEDS: ENOXAPARIN 40 MG/0.4 ML SYRINGE SUBQ SCH (09:18)
[2020-04-19] MEDS: oxyCODONE 5 MG TABLET PO PRN ×2 (14:32→22:34)
[2020-04-19] MEDS: methocarbamoL 500 MG TABLET PO PRN (14:32)
[2020-04-19] MEDS: NICOTINE 14 MG PATCH TOP SCH (14:33)
[2020-04-19] MEDS ORDERED: ALBUTEROL NEB 2.5 MG/3 ML INH PRN (16:59)
[2020-04-19] MEDS: PANTOPRAZOLE 40 MG TABLET PO SCH (17:16)
[2020-04-19] MEDS: SODIUM CHLORIDE FLUSH 0.9% 10 ML SYRINGE IVP SCH (17:17)
[2020-04-19] MEDS: levoFLOXacin 500 MG/100 ML 500 MG/100 ML BAG IV SCH (17:50)
--- NOTE | 2020-04-19 18:47 | OPERATIVE REPORT ---
Operative Report - General Admit Date: 04/16/20 Procedure Date: 04/16/20 Planned Procedure: Diagnostic laparoscopy with repair of perforate bowel and indicated procedures. Pre-Op Diagnosis: Perforated viscus at the time of colonoscopy Procedure Performed: Diagnostic laparoscopy with rapair of perforated viscus via two layer closer and drain placement. Post Op Diagnosis: Same - Procedure Note Primary Surgeon: Herman Anesthesia Provider: MATTHEW Anders Anesthesia Technique: General ET tube Pathology: Portion of injured colon to pathology in formalin Estimated Blood Loss (mL): 25 Drain/Tube Type: Freddy drain (19F) Findings: Injured colon identified at the mid descending location. No intraperitoneal free fluid or spillage appreciated. Complications: None apparent - Other Other Information/Narrative: After obtaining informed consent, the patient is brought to the operating room and placed in the supine position on the operating table. Following successful induction of general endotracheal anesthesia, appropriate padding of all bony prominences, and placement of appropriate monitors, the abdomen was prepped and draped in the standard surgical fashion. A timeout was held per scope protocol. All elements of the surgical safety checklist were followed before, during, and after the procedure. Following infiltration with local anesthetic to create a field block, an incision was created inferior to the umbilicus at the site of the prior hysterectomy incisionsand carried down through the skin and subcutaneous tissue to reveal the fascia below. 2-0 Vicryl retention sutures were placed on either side of the midline and the abdomen was entered under direct vision using a 15 blade scalpel. A 10 mm blunt Mendoza balloon trocar was placed in the abdominal cavity and it was insufflated to 15 mm of Hg pressure. The camera was placed in the abdominal cavity. Following infiltration with local anesthetic to create a field block, 2 additional 15 mm trocars were placed. One midway between the xyphoid and the umbilicus and one between the umbilicus and the pubis. The colon was gently manipulated with atraumatic graspers. The defect was anterior. Using laparoscopic needle holders, a traction suture was placed on either side of the defect and one in the center so the edges if the defect could be elevated and controlled for repair. A 60 mm stapling device was placed through the central port and placed across the two sides of the defect. The side were brought together without evidence of tensions. The small trimmed edges of the bowel were saved and submitted to pathology. The staple line was reinforced by oversewing the entirety of with interrupted 3-0 vicryl sutures. This was done laparoscopically and a knot pusher used to snug the suture knots. The abdomen was irrigated with warm saline solution and aspirated free of all fluid and particulate matter. A survey of the abdomen and complete evaluation of the entire small bowel and colon did not reveal any evidence of injury or pathology. A 19 Haitian Freddy drain was placed through the central trocar and brought out through the lower midline incisions. This was positioned in the left paracolic gutter and then sewn into place against the abdominal wall. The trocars were remove under direct vision and the abdomen was desufflated. The umbilical inci lona was closed with interrupted 0 vicryl sutures and monocryl was placed in all of the skin incisions. All sponge, needle, and instrument counts were correct at the conclusion of the case. The patient was allowed to awaken from anesthesia without difficulty and taken to the post anesthesia care unit in good condition.
[2020-04-19] MEDS ORDERED: CALCIUM CARBONATE CHEW 500 MG TABLET PO PRN (22:43)
[2020-04-20] MEDS: ACETAMINOPHEN 1,000 MG/100 ML 100 ML IV SCH ×2 (00:39→06:36)
[2020-04-20] MEDS: SODIUM CHLORIDE FLUSH 0.9% 10 ML SYRINGE IVP SCH ×2 (00:40→08:26)
[2020-04-20] MEDS: ONDANSETRON 4 MG/2 ML VIAL IVP PRN (00:40)
[2020-04-20] MEDS: methocarbamoL 500 MG TABLET PO PRN (05:31)
[2020-04-20 05:32] LABS: BASOPHILS % (AUTO) 0.7 %; EOSINOPHILS % (AUTO) 2.6 %; MEAN CORPUSCULAR HEMOGLOBIN 31.7 pg (27.0-31.0); MEAN CORPUSCULAR HGB CONC 32.5 g/dL (32.0-36.0); MEAN CORPUSCULAR VOLUME 97.6 fL (81.0-99.0); MEAN PLATELET VOLUME 10.7 fL (7.9-10.8); MONOCYTES % (AUTO) 7.7 %; NEUTROPHILS % (AUTO) 75.7 %; PLT - PLATELET COUNT 301 10^3/uL (130-450); WHITE BLOOD COUNT 5.8 x10^3/uL (4.8-10.8)
[2020-04-20 05:37] LABS: ABNORMAL LYMPHS % (MANUAL) 0 %
[2020-04-20 05:43] LABS: BUN - BLOOD UREA NITROGEN < 5 mg/dL (6-20); CARBON DIOXIDE - CO2 28 mmol/L (21-32); CHLORIDE 97 mmol/L (101-111); CREATININE 0.8 mg/dL (0.4-1.0); GLUCOSE 120 mg/dL (70-100); SODIUM 136 mmol/L (135-145)
[2020-04-20 05:58] LABS: BAND NEUTROPHILS % (MANUAL) 4 %; BASOPHILS # (MANUAL) 0.1 10^3/uL (0-0.1); BASOPHILS % (MANUAL) 1 %; DIFFERENTIAL COMMENT MANUAL DIFFERENTIAL; EOSINOPHILS # (MANUAL) 0.3 10^3/uL (0-0.7); LYMPHOCYTES # (MANUAL) 1.1 10^3/uL (1.5-3.5); LYMPHOCYTES % (MANUAL) 19 %; MONOCYTES # (MANUAL) 0.3 10^3/uL (0.0-1.0); PLATELET ESTIMATE, MANUAL NORMAL (130-450,000) (NORMAL); PLATELET MORPHOLOGY NORMAL APPEARANCE (NORMAL); RBC MORPHOLOGY (MULTIPLE) NORMAL APPEARANCE (NORMAL)
[2020-04-20] MEDS: PANTOPRAZOLE 40 MG TABLET PO SCH (06:35)
[2020-04-20] MEDS: D5NS W/20 MEQ KCL 1,000 ML IV SCH (06:35)
[2020-04-20 07:53] VITALS: BP 160/98
[2020-04-20] MEDS: PREGABALIN 25 MG CAPSULE PO SCH ×2 (08:25→08:28)
[2020-04-20] MEDS: ENOXAPARIN 40 MG/0.4 ML SYRINGE SUBQ SCH (08:25)
[2020-04-20] MEDS: NICOTINE 14 MG PATCH TOP SCH (08:26)
[2020-04-20] MEDS: oxyCODONE 5 MG TABLET PO PRN ×2 (08:26→11:29)
[2020-04-20] MEDS ORDERED: LOSARTAN 50 MG TABLET PO SCH (09:00)
[2020-04-20] MEDS ORDERED: ACETAMINOPHEN 500 MG TABLET PO PRN (09:16)
--- NOTE | 2020-04-20 11:04 | Discharge Plan ---
Discharge Plan Problem Reviewed?: Yes Disposition: Home, Self Care Condition: Good Prescriptions: oxyCODONE [Roxicodone] 5 mg PO Q3HR PRN #20 tablet PRN Reason: Pain methocarbamoL [Robaxin] 500 mg PO Q6HR PRN #20 tablet PRN Reason: Spasms Diet: Regular Activity Restrictions: 15 lb lifting restriction Shower Restrictions: No Driving Restrictions: Yes (Not while using pain meds) No Smoking: If you smoke, Please STOP! Call for help. Follow-up with: Lynsey Sutton MD [Provider Admit Priv/Credential] -
--- NOTE | 2020-04-20 11:10 | DISCHARGE SUMMARY ---
"Discharge Summary Admit Date: 04/16/20 Discharge Date: 04/20/20 Discharging Provider: Herman Primary Care Provider: Ran Code Status: Attempt Resuscitation Condition at Discharge: Good Discharge Disposition: 01 Home, Self Care - DIAGNOSES Admission Diagnoses: Perforated viscus Discharge Diagnoses with Status of Each Condition: Resolved - HPI History of Present Illness: Roebrta is a generally healthy 49 year old lady who was admitted for screening colonoscopy on 04/16. She sustained a perforation during the procedure and required operative repair. - CONSULTS | PROCEDURES Consultations: None Procedures: Colonoscopy Laparoscopy with repair of colon perforation - HOSPITAL COURSE Hospital Course: Roberta was admitted to med surg following laparoscopy with repair of colon perforation. We struggled with pain control and nausea for the first 48 hours. After that time, she began to improve and had multiple bowel movements on POD #3. Today she is feeling better. Her pain is controlled with oral medications and she is able to walk the halls unassisted. She is discharged to her home in the care of her family. She will follow up with me in my office in 2 weeks. - ALLERGIES Allergies/Adverse Reactions: Allergies Allergy/AdvReac Type Severity Reaction Status Date / Time Penicillins Allergy Severe Anaphylaxis Verified 04/15/20 15:03 amlodipine AdvReac Unknown Verified 04/16/20 12:59 - MEDICATIONS Home Medications: Ambulatory Orders Medication Instructions Recorded Confirmed Omeprazole [PriLOSEC] 20 mg PO QDAC 05/26/16 04/16/20 Albuterol Sulfate [Proair Hfa 1 - 2 puffs INH Q4H PRN 10/24/17 04/16/20 Inhaler] Losartan [Cozaar] 50 mg PO DAILY 04/15/20 04/15/20 Acetaminophen [Tylenol] 500 mg PO Q4HR PRN tablet 04/20/20 Calcium Carbonate [Tums (Calcium 500 mg PO Q6HR PRN tablet 04/20/20 Carbonate 500mg)] methocarbamoL [Robaxin] 500 mg PO Q6HR PRN #20 tablet 04/20/20 oxyCODONE [Roxicodone] 5 mg PO Q3HR PRN #20 tablet 04/20/20 - PHYSICAL EXAM AT DISCHARGE General Appearance: positive: No acute distress, Alert Eyes Bilateral: positive: Normal inspection, PERRL, EOMI ENT: positive: ENT inspection nml, Pharynx nml, No signs of dehydration Neck: positive: Nml inspection, No JVD Respiratory: positive: Chest non-tender, No respiratory distress, Breath sounds nml Cardiovascular: positive: Regular rate & rhythm, No murmur Abdomen: positive: Other (Appropriately tender to palpation. Healing lap sites. Active bowel sounds) Back: negative: CVA tenderness (R), CVA tenderness (L) Skin: positive: Color nml, No rash - LABS Result Diagrams: 04/20/20 05:15 04/20/20 05:15 - QUALITY (Female Hip Fx Only) Was patient sent home on osteoporosis medication?: No - FOLLOW UP Follow Up: [facility] in 2 weeks - TIME SPENT Time Spent in Discharge (Minutes): 20"
== END 2020-04-20 13:15 | disposition home or self-care (01) | DRG 908 ==
LOC: SDS 12:39 → ICU 17:46 → MS2 04-17 19:42
PROVIDERS: ADMIT Surgery; ATTEND Surgery
PROC: 0DJD8ZZ Inspection of Lower Intestinal Tract, Via Natural or Artificial Opening Endoscopic (ICD-10-PCS; 2020-04-16)
PROC: 0DQM4ZZ Repair Descending Colon, Percutaneous Endoscopic Approach (ICD-10-PCS; principal; 2020-04-16 13:45)
DX: K91.71 Accidental puncture and laceration of a digestive system organ or structure during a digestive system procedure (principal); K56.7 Ileus, unspecified; Y65.8 Other specified misadventures during surgical and medical care; Y92.234 Operating room of hospital as the place of occurrence of the external cause; Z12.11 Encounter for screening for malignant neoplasm of colon; M79.7 Fibromyalgia; I10 Essential (primary) hypertension; J45.909 Unspecified asthma, uncomplicated; F17.210 Nicotine dependence, cigarettes, uncomplicated; F41.9 Anxiety disorder, unspecified; K21.9 Gastro-esophageal reflux disease without esophagitis; Z79.51 Long term (current) use of inhaled steroids; Z79.899 Other long term (current) drug therapy
CPT/HCPCS: 36415; 45378; 74019; 80048; 85025; 87150; A9270; J0131; J1170; J1650; J2765; J3010; J7120

== ENCOUNTER 2020-05-09 07:00 | Outpatient (CLI) | payer MEDICAID ==
--- NOTE | 2020-05-09 17:46 | XRAY Report ---
PROCEDURE: Chest 2 View X-Ray INDICATIONS: CHEST WALL PAIN TECHNIQUE: 2 view(s) of the chest. COMPARISON: 12/29/2019, 05/28/2019 FINDINGS: Surgical changes and devices: None. Lungs and pleura: No pleural effusions or pneumothorax. Lungs are clear. Mediastinum: Mediastinal contours are normal. Heart size is normal. Bones and chest wall: No suspicious bony abnormalities. Mild degenerative changes are seen. There i s accentuated thoracic kyphosis. Soft tissues appear unremarkable. IMPRESSION: Normal plain film series for age, without an imaging explanation found for the patient's presenting history of chest wall pain. Reviewed by: Jeffy Joe MD on 05/09/2020 4:44 PM [facility] Approved by: Jeffy Joe MD on 05/09/2020 4:44 PM [facility] Station ID: [id number]
== END 2020-05-09 23:59 | disposition home or self-care (01) ==
LOC: DI 07:00
PROVIDERS: ATTEND Surgery
DX: R07.89 Other chest pain (principal)

== ENCOUNTER 2020-07-13 11:09 | Emergency (ER) | payer MEDICAID ==
[2020-07-13 11:15] VITALS: BP 155/100
--- NOTE | 2020-07-13 11:31 | ED Physician Documentation ---
PD HPI HEENT - Stated complaint Stated Complaint: EAR PX, EAR BLEEDING - Chief complaint Chief Complaint: Heent - History obtained from History obtained from: Patient - Additional information Additional information: She had a few days of ear pressure and mild pain on the left which culminated in bleeding last night after using a Q-tip. 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 - Present Medications Home Medications: Ambulatory Orders Medication Instructions Recorded Confirmed Omeprazole [PriLOSEC] 20 mg PO QDAC 05/26/16 04/16/20 Albuterol Sulfate [Proair Hfa 1 - 2 puffs INH Q4H PRN 10/24/17 04/16/20 Inhaler] Losartan [Cozaar] 50 mg PO DAILY 04/15/20 04/15/20 Acetaminophen [Tylenol] 500 mg PO Q4HR PRN tablet 04/20/20 Calcium Carbonate [Tums (Calcium 500 mg PO Q6HR PRN tablet 04/20/20 Carbonate 500mg)] methocarbamoL [Robaxin] 500 mg PO Q6HR PRN #20 tablet 04/20/20 oxyCODONE [Roxicodone] 5 mg PO Q3HR PRN #20 tablet 04/20/20 methocarbamoL [Robaxin] 500 mg PO Q6H PRN #30 tablet 04/23/20 oxyCODONE [Roxicodone] 5 mg PO Q4-6H PRN #20 tablet 04/23/20 Hydrocodone/Acetaminophen [[place] 1 each PO Q6H PRN #30 tablet 04/29/20 5-325 Tablet] Ciproflox/Dexameth Otic Drops 4 drops OT BID #1 bottle 07/13/20 [Ciprodex] - Allergies Allergies/Adverse Reactions: Allergies Allergy/AdvReac Type Severity Reaction Status Date / Time Penicillins Allergy Severe Anaphylaxis Verified 07/13/20 11:15 amlodipine AdvReac Unknown Verified 07/13/20 11:15 - Social History Does the pt smoke?: Yes Smoking Status: Current every day smoker Does the pt drink ETOH?: Yes Does the pt have substance abuse?: No - Immunizations Immunizations are current?: Yes - POLST Patient has POLST: No PD ED PE NORMAL - Vitals Vital signs reviewed: Yes - General General: Alert and oriented X 3, No acute distress - HEENT HEENT: PERRL, EOMI, Other (There is a large clot in the canal which was irrigated out and after that it looks like she had external otitis with an abrasion on the inferior canal. The TM was normal.) - Neuro Neuro: Alert and oriented X 3, Normal speech Results - Vitals Vitals: Vital Signs - 24 hr 07/13/20 11:13 Temperature 36.4 C L Heart Rate 72 Respiratory 16 Rate Blood Pressure 155/100 H O2 Saturation 99 Oxygen O2 Source Room air Departure - Departure Disposition: Home, Self Care Clinical Impression: External otitis of left ear Qualifiers: Otitis externa type: hemorrhagic Chronicity: acute Qualified Code(s): H60.322 - Hemorrhagic otitis externa, left ear Condition: Good Record reviewed to determine appropriate education?: Yes Instructions: ED Otitis Externa Prescriptions: Ciproflox/Dexameth Otic Drops [Ciprodex] 4 drops OT BID #1 bottle Comments: Return if worsening, follow-up with your doctor late this week for recheck.
== END 2020-07-13 11:41 | disposition home or self-care (01) ==
LOC: ED 11:09
DX: H60.322 Hemorrhagic otitis externa, left ear (principal); I10 Essential (primary) hypertension; F17.200 Nicotine dependence, unspecified, uncomplicated
CPT/HCPCS: 99282; 99283

== ENCOUNTER 2023-07-29 14:34 | Emergency (ER) | payer MEDICAID ==
[2023-07-29 15:07] VITALS: O2SAT 98
--- NOTE | 2023-07-29 15:24 | ED Physician Documentation ---
History of Present Illness - Stated complaint Stated Complaint: SOA, CHEST CONGESTION - Chief complaint Chief Complaint: Resp - History obtained from History obtained from: Patient - History of Present Illness Pain level max: 0 Pain level now: 0 - Additonal information Additional information: 52-year-old female presents to the emergency department with a cough and congestion for the past 1 month. She states she is concerned that she has developed pneumonia. Has had subjective fevers and chills at home. Has not done any home COVID test. She does smoke. No nausea or vomiting. Has not albuterol inhaler but has not been using it. No recent travel. No recent antibiotics. No abdominal pain. No headache. No falls. No trauma. The cough is mostly dry. Not having any dyspnea. 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, 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 - Present Medications Home Medications: Ambulatory Orders Medication Instructions Recorded Confirmed Omeprazole [PriLOSEC] 20 mg PO QDAC 05/26/16 07/13/20 Losartan [Cozaar] 50 mg PO DAILY 04/15/20 07/13/20 Ciproflox/Dexameth Otic Drops 4 drops OT BID #1 bottle 07/13/20 [Ciprodex] Meloxicam [Mobic] 7.5 mg PO DAILY 07/13/20 07/13/20 Albuterol Sulf [Ventolin Hfa 1 - 2 puffs INH Q4HR PRN #1 each 07/29/23 Inhaler] levoFLOXacin [Levofloxacin] 750 mg PO DAILY #5 tab 07/29/23 - Allergies Allergies/Adverse Reactions: Allergies Allergy/AdvReac Type Severity Reaction Status Date / Time Penicillins Allergy Severe Anaphylaxis Verified 07/29/23 14:38 amlodipine AdvReac Unknown Verified 07/29/23 14:38 - Social History Does the pt smoke?: No Smoking Status: Never smoker Does the pt drink ETOH?: Yes Does the pt have substance abuse?: No - Immunizations Immunizations are current?: Yes - POLST Patient has POLST: No PD ED PE NORMAL - Vitals Vital signs reviewed: Yes - General General: Alert and oriented X 3, No acute distress - HEENT HEENT: PERRL, Ears normal, Moist mucous membranes, Pharynx benign - Neck Neck: Supple, no meningeal sign - Cardiac Cardiac: RRR, Strong equal pulses - Respiratory Respiratory: No respiratory distress, Other (Diminished breath sounds bilaterally) - Abdomen Abdomen: Soft, Non tender, Non distended - Derm Derm: Warm and dry, No rash - Extremities Extremities: No edema - Neuro Neuro: Alert and oriented X 3 - Psych Psych: Normal mood, Normal affect Results - Vitals Vitals: Vital Signs - 24 hr 07/29/23 07/29/23 07/29/23 14:38 14:41 15:59 Temperature 37.1 C Heart Rate 100 106 H 89 Respiratory 20 16 18 Rate Blood Pressure 136/90 H 124/100 H O2 Saturation 97 98 07/29/23 16:33 Temperature Heart Rate 92 Respiratory 16 Rate Blood Pressure 128/98 H O2 Saturation 98 Oxygen O2 Source Room air - Labs Labs: Laboratory Tests 07/29/23 14:00 Nasal Adenovirus (PCR) NOT DETECTED Nasal B. parapertussis DNA (PCR) NOT DETECTED Nasal Coronavir 229E PCR NOT DETECTED Nasal Coronavir HKU1 PCR NOT DETECTED Nasal Coronavir NL63 PCR NOT DETECTED Nasal Coronavir OC43 PCR NOT DETECTED Nasal Enterovir/Rhinovir PCR NOT DETECTED Nasal Influenza B PCR NOT DETECTED Nasal Influenza A PCR NOT DETECTED Nasal Parainfluen 1 PCR NOT DETECTED Nasal Parainfluen 2 PCR NOT DETECTED Nasal Parainfluen 3 PCR NOT DETECTED Nasal Parainfluen 4 PCR NOT DETECTED Nasal RSV (PCR) NOT DETECTED Nasal B.pertussis DNA PCR NOT DETECTED Nasal C.pneumoniae (PCR) NOT DETECTED Rigo Human Metapneumo PCR NOT DETECTED Nasal M.pneumoniae (PCR) NOT DETECTED Nasal SARS-CoV-2 (PCR) DETECTED A - Rads (name of study) cxr Relevant Findings:: Final report received, See rad report PD Medical Decision Making - ED course Complexity details: reviewed results, re-evaluated patient, considered differential, d/w patient ED course: Patient is well-appearing, nontoxic. Afebrile. No hypoxia. No respiratory distress. Positive for COVID. Appears to have pneumonia as well. We will cover with a levaquin as she is anaphylactic to penicillins. She did not albuterol treatment here. No wheezing. Symptoms ongoing for the past several weeks, not a candidate for Paxlovid. Patient counseled regarding signs and symptoms for which I believe and urgent re-evaluation would be necessary. Patient with good understanding of and agreement to plan and is comfortable going home at this time This document was made in part using voice recognition software. While efforts are made to proofread this document, sound alike and grammatical errors may occur. Departure - Departure Disposition: Home, Self Care Clinical Impression: COVID-19 Pneumonia Qualifiers: Pneumonia type: due to unspecified organism Laterality: bilateral Lung location: unspecified part of lung Qualified Code(s): J18.9 - Pneumonia, unspecified organism Condition: Good Instructions: ED Pneumonia Adult Follow-Up: your,doctor in 1 week [Other] Prescriptions: Albuterol Sulf [Ventolin Hfa Inhaler] 1 - 2 puffs INH Q4HR PRN #1 each PRN Reason: Shortness Of Air/Wheezing levoFLOXacin [Levofloxacin] 750 mg PO DAILY #5 tab Comments: You have tested positive for covid today. He also appear to have pneumonia on your x-ray. Will refill your albuterol for you and start you on Levaquin for the pneumonia. Please follow-up with your doctor for further care. Please return if you worsen. [facility] [place]. Forms: PCP List Discharge Date/Time: 07/29/23 16:37
[2023-07-29] MEDS: IPRATROPIUM/ALBUTEROL 3 ML NEB INH STA (15:34)
[2023-07-29 15:37] LABS: B. PARAPERTUSSIS- RESP PCR PAN NOT DETECTED; B. PERTUSSIS- RESP PCR PANEL NOT DETECTED; C. PNEUMONIAE- RESP PCR PANEL NOT DETECTED; CORONAVIRUS 229E-RESP PCR NOT DETECTED; CORONAVIRUS HKU1-RESP PCR NOT DETECTED; CORONAVIRUS NL63-RESP PCR NOT DETECTED; CORONAVIRUS OC43-RESP PCR NOT DETECTED; HUMAN METAPNEUMOVIRUS NOT DETECTED; INFLUENZA A- RESP PCR PANEL NOT DETECTED; INFLUENZA B - RESP PCR PANEL NOT DETECTED; M. PNEUMONIAE- RESP PCR PANEL NOT DETECTED; PARAINFLUENZA VIRUS 1 NOT DETECTED; PARAINFLUENZA VIRUS 2 NOT DETECTED; PARAINFLUENZA VIRUS 3 NOT DETECTED; PARAINFLUENZA VIRUS 4 NOT DETECTED; RHINOVIRUS/ENTEROVIRUS NOT DETECTED; RSV- RESP PCR PANEL NOT DETECTED
[2023-07-29 15:39] LABS: SARS-CoV-2 -RESP PCR PANEL DETECTED
--- NOTE | 2023-07-29 16:00 | XRAY Report ---
PROCEDURE: Chest 2V INDICATIONS: SOA/cough TECHNIQUE: 2 views of the chest were obtained. COMPARISON: None. FINDINGS: Surgical changes and devices: None. Lungs and pleura: Patchy bilateral pulmonary infiltrates. Pleural spaces are clear. Mediastinum: Mediastinal contours appear normal. Heart size is normal. Bones and chest wall: No suspicious bony lesions. Overlying soft tissues appear unremarkable. IMPRESSION: Patchy bilateral pulmonary infiltrates consistent with pneumonia Reviewed by: Gibran Christensen MD on 07/29/2023 2:59 PM [facility] Approved by: Gibran Christensen MD on 07/29/2023 2:59 PM [facility] Station ID: [id number]
[2023-07-29] MEDS ORDERED: ALBUTEROL 1 PUFF INH STA (16:09)
[2023-07-29 16:41] VITALS: BP 128/98
== END 2023-07-29 16:37 | disposition home or self-care (01) ==
LOC: ED 14:34
DX: U07.1 COVID-19 (principal); J18.9 Pneumonia, unspecified organism; I10 Essential (primary) hypertension; J45.909 Unspecified asthma, uncomplicated; Z79.899 Other long term (current) drug therapy
CPT/HCPCS: 87633; 94640; 99283; 99284

== ENCOUNTER 2023-08-02 19:37 | Emergency (ER) | payer MEDICAID ==
[2023-08-02 20:11] LABS: BASOPHILS % (AUTO) 0.3 %; EOSINOPHILS # (AUTO) 0.1 10^3/uL (0.0-0.7); EOSINOPHILS % (AUTO) 0.7 %; HCT - HEMATOCRIT 46.5 % (37.0-47.0); HGB - HEMOGLOBIN 14.9 g/dL (12.0-16.0); LYMPHOCYTES # (AUTO) 3.2 10^3/uL (1.5-3.5); LYMPHOCYTES % (AUTO) 27.2 %; MEAN CORPUSCULAR HEMOGLOBIN 27.7 pg (27.0-31.0); MEAN CORPUSCULAR VOLUME 86.6 fL (81.0-99.0); MEAN PLATELET VOLUME 9.9 fL (7.9-10.8); MONOCYTES # (AUTO) 0.7 10^3/uL (0.0-1.0); MONOCYTES % (AUTO) 6.3 %; NEUTROPHILS # (AUTO) 7.6 10^3/uL (1.5-6.6); NEUTROPHILS % (AUTO) 64.8 %; PLT - PLATELET COUNT 768 10^3/uL (130-450); RED BLOOD COUNT 5.37 10^6/uL (4.20-5.40); RED CELL DISTRIBUTION WIDTH 12.3 % (12.0-15.0); WHITE BLOOD COUNT 11.7 x10^3/uL (4.8-10.8)
[2023-08-02 20:28] LABS: ALBUMIN 3.2 g/dL (3.2-5.5); ALBUMIN/GLOBULIN RATIO 1.1 (1.0-2.2); BILIRUBIN,TOTAL 0.3 mg/dL (0.2-1.0); CALCIUM 8.9 mg/dL (8.5-10.3); POTASSIUM 4.3 mmol/L (3.5-4.5)
[2023-08-02 21:02] LABS: BILIRUBIN,URINE NEGATIVE (NEGATIVE); GLUCOSE, URINE (UA) NEGATIVE (NEGATIVE); KETONES,URINE (UA) NEGATIVE (NEGATIVE); LEUKOCYTE ESTERASE, URINE NEGATIVE (NEGATIVE); NITRITE,URINE NEGATIVE (NEGATIVE); OCCULT BLOOD,URINE NEGATIVE (NEGATIVE); PROTEIN,URINE NEGATIVE (NEGATIVE); UROBILINOGEN,URINE 0.2 (NORMAL) E.U./dL (NORMAL)
[2023-08-02 21:03] LABS: CLARITY,URINE CLEAR (CLEAR)
[2023-08-02] MEDS ORDERED: iohexoL-300 100 ML VIAL ONE (22:07)
[2023-08-02] MEDS: iohexoL-300 100 ML VIAL IVP ONE (22:24)
[2023-08-02] MEDS: HYDROmorphone 1 MG/ML CARPUJECT IVP STA (23:03)
[2023-08-02] MEDS: ONDANSETRON 4 MG/2 ML VIAL IVP STA (23:04)
[2023-08-02] MEDS: SODIUM CHLORIDE 0.9% 1,000 ML IV STA (23:12)
--- NOTE | 2023-08-03 02:04 | CT Report ---
PROCEDURE: Abdomen/Pelvis W INDICATIONS: LLQ and mid abd pain CONTRAST: 100mL Omni 300 TECHNIQUE: After the administration of intravenous contrast, a CT scan of the abdomen and pelvis was performed. Images were recorded and evaluated at appropriate window settings. Reformats: coronal and sagittal. F or radiation dose reduction, the following was used: automated exposure control, adjustment of mA and /or kV according to patient size. COMPARISON: None. FINDINGS: Image quality: Diagnostic. Lower chest: Unremarkable. Liver: [Cyst. Gallbladder and biliary tree: No radiopaque stones or wall thickening. No biliary dilation. Spleen: No splenomegaly. Pancreas: No pancreatic ductal dilation. Adrenals: No adrenal nodule. Kidneys and ureters: No hydronephrosis. No renal cystic lesion which requires follow up. No solid mas s. Stomach, bowel and peritoneum: No small bowel obstruction. Enhancing mucosa with sub-mucosal edema pr edominantly throughout the jejunum. Normal caliber appendix. No pneumoperitoneum or ascites. Lymph nodes: No central or retroperitoneal adenopathy. Vessels: No infrarenal aortic aneurysm. PELVIS Reproductive organs: Unremarkable. Bladder: No abnormal wall thickening, accounting for underdistention. Pelvic lymph nodes: No pelvic adenopathy by size criteria. Bones: No aggressive osseous abnormality. Other: No significant ventral or inguinal hernia. IMPRESSION: Small bowel mucosal enhancement and sub-mucosal edema most consistent with enterocolitis. Reviewed by: Monique Stanford MD on 08/03/2023 2:02 AM [facility] Approved by: Monique Stanford MD on 08/03/2023 2:02 AM PST Station ID: [id number]
--- NOTE | 2023-08-03 02:42 | ED Physician Documentation ---
History of Present Illness - Stated complaint Stated Complaint: ABD PX/CONGESTION - Chief complaint Chief Complaint: Abd Pain - History obtained from History obtained from: Patient - Additonal information Additional information: The pt comes to the ED with CC of intermittent abdominal pain for the past few months and over the past week, nasal congestion and a cough with recent dx of COVID. She was felt to have pneumonia, so was placed on abx. No SOB, fever, or chills currently. Some nausea, no vomiting. Her abd pain is crampy and sharp in nature, and not triggered by anything in particular. It is short-lived (minutes) when it happens, and usually occurs on a daily basis. Periumbilical, LLQ. 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 - Present Medications Home Medications: Ambulatory Orders Medication Instructions Recorded Confirmed Omeprazole [PriLOSEC] 20 mg PO QDAC 05/26/16 08/03/23 Losartan [Cozaar] 50 mg PO DAILY 04/15/20 08/03/23 Ciproflox/Dexameth Otic Drops 4 drops OT BID #1 bottle 07/13/20 08/03/23 [Ciprodex] Meloxicam [Mobic] 7.5 mg PO DAILY 07/13/20 08/03/23 Albuterol Sulf [Ventolin Hfa 1 - 2 puffs INH Q4HR PRN #1 each 07/29/23 08/03/23 Inhaler] levoFLOXacin [Levofloxacin] 750 mg PO DAILY #5 tab 07/29/23 08/03/23 Ondansetron Odt [Zofran] 4 mg TL Q6H PRN #10 tablet 08/03/23 08/03/23 Oxycodone HCl/Acetaminophen 1 each PO Q4H PRN #8 tablet 08/04/23 [Percocet 5-325 mg Tablet] - Allergies Allergies/Adverse Reactions: Allergies Allergy/AdvReac Type Severity Reaction Status Date / Time Penicillins Allergy Severe Anaphylaxis Verified 08/03/23 20:52 amlodipine AdvReac Unknown Verified 08/03/23 20:52 - Social History Does the pt smoke?: Yes Smoking Status: Current every day smoker Does the pt drink ETOH?: Yes Does the pt have substance abuse?: No - Immunizations Immunizations are current?: Yes - POLST Patient has POLST: No PD ED PE NORMAL - Vitals Vital signs reviewed: Yes - General General: Alert and oriented X 3, No acute distress, Well developed/nourished - HEENT HEENT: Atraumatic, PERRL, EOMI, Moist mucous membranes - Neck Neck: Supple, no meningeal sign - Cardiac Cardiac: RRR, No murmur - Respiratory Respiratory: No respiratory distress, Clear bilaterally - Abdomen Abdomen: Soft, Non distended, Other (LLQ tend, no rebound or guarding.) - Derm Derm: Warm and dry - Extremities Extremities: No deformity - Neuro Neuro: Alert and oriented X 3 - Psych Psych: Normal mood, Normal affect Results - Vitals Vitals: Oxygen O2 Source Room air - Labs Labs: Laboratory Tests 08/02/23 08/02/23 08/02/23 20:05 20:05 20:50 WBC 11.7 H RBC 5.37 Hgb 14.9 Hct 46.5 MCV 86.6 MCH 27.7 MCHC 32.0 RDW 12.3 Plt Count 768 H MPV 9.9 Neut # (Auto) 7.6 H Lymph # (Auto) 3.2 [place] # (Auto) 0.7 Eos # (Auto) 0.1 Baso # (Auto) 0.0 Absolute Nucleated RBC 0.00 Nucleated RBC % 0.0 Sodium 133 L Potassium 4.3 Chloride 100 L Carbon Dioxide 26 Anion Gap 7.0 BUN 16 Creatinine 1.0 Estimated GFR (MDRD) 58 L Glucose 101 Calcium 8.9 Total Bilirubin 0.3 AST 8 L ALT 6 L Alkaline Phosphatase 73 Total Protein 6.0 L Albumin 3.2 Globulin 2.8 Albumin/Globulin Ratio 1.1 Lipase 23 Urine Color YELLOW Urine Clarity CLEAR Urine pH 6.0 Ur Specific [place] <=1.005 Urine Protein NEGATIVE Urine Glucose (UA) NEGATIVE Urine Ketones NEGATIVE Urine Occult Blood NEGATIVE Urine Nitrite NEGATIVE Urine Bilirubin NEGATIVE Urine Urobilinogen 0.2 (NORMAL) Ur Leukocyte Esterase NEGATIVE Ur Microscopic Review NOT INDICATED Urine Culture Comments NOT INDICATED - Rads (name of study) CT abd/pelvis Relevant Findings:: Final report received, See rad report (some enhancement consistent with enterocolitis.) PD Medical Decision Making - ED course Complexity details: reviewed results, re-evaluated patient, considered differential, d/w patient ED course: The pt presented with abd pain x months and some mild upper respiratory sx more acutely with dx of COVID. Her labs showed a mild leukocytosis, but otherwise unremarkable. She was tender in the LLQ, so CT scan was performed. Unfortunately, the read time was nearly [address] had been performed, so the pt did have an extended stay in the ED awaiting this. The scan was read as possible enterocolitis. The pt did not have any diarrhea, and sx were fairly chronic at this point. The pt is already on Levaquin, and I do not find indication to treat for enteric infection at this point. We have discussed symptomatic management at home, as well as the usual indications for return. Departure - Departure Disposition: 01 Home, Self Care Clinical Impression: Gastroenteritis Condition: Stable Instructions: ED Gastroenteritis Viral Prescriptions: Ondansetron Odt [Zofran] 4 mg TL Q6H PRN #10 tablet PRN Reason: Nausea / Vomiting Comments: Your labs look good. Your CT scan was finally read and showed some inflammation in your intestines with, consistent with most likely viral infection. This will be expected to pass on its own, given time. Please follow-up with your primary doctor as needed. A prescription for nausea medication has been electronically transmitted to the [facility] in [place]. Please pick this up tomorrow. Forms: PCP List Discharge Date/Time: 08/03/23 03:49
[2023-08-03 03:41] VITALS: O2SAT 98
[2023-08-03 03:51] VITALS: BP 133/87
== END 2023-08-03 03:49 | disposition home or self-care (01) ==
LOC: ED 19:37
DX: K52.9 Noninfective gastroenteritis and colitis, unspecified (principal); I10 Essential (primary) hypertension; F17.200 Nicotine dependence, unspecified, uncomplicated; Z79.899 Other long term (current) drug therapy
CPT/HCPCS: 36415; 74177; 80053; 81003; 83690; 85025; 96374; 96375; 99283; 99284; J1170; Q9967; 81001; 87086

== ENCOUNTER 2023-08-03 20:40 | Outpatient (CLI) | payer MEDICAID | END 2023-08-03 20:41 | disposition critical access hospital (66) | LOC: EMS 20:40 | DX: R10.31 Right lower quadrant pain (principal) | CPT/HCPCS: A0425; A0429; A0999 ==

== ENCOUNTER 2023-08-03 20:49 | Emergency (ER) | payer MEDICAID ==
--- NOTE | 2023-08-03 20:54 | ED Physician Documentation ---
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 At that point her main complaint was cough and congestion and she was subsequently diagnosed with COVID and pneumonia and put on albuterol and levofloxacin. She says she been having on and off abdominal pain for a month and was seen overnight last night. The physician's note is not complete so not sure what the thought process was there but she had a CAT scan showing small bowel mucosal enhancement consistent with enterocolitis. She was prescribed Zofran. She did have a white count of 11. This evening, just half an hour ago she states she developed severe right lower quadrant pain that felt like something popped in there. She has been nauseous but has not vomited today. States she has been losing weight recently. 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 - Present Medications Home Medications: Ambulatory Orders Medication Instructions Recorded Confirmed Omeprazole [PriLOSEC] 20 mg PO QDAC 05/26/16 08/03/23 Losartan [Cozaar] 50 mg PO DAILY 04/15/20 08/03/23 Ciproflox/Dexameth Otic Drops 4 drops OT BID #1 bottle 07/13/20 08/03/23 [Ciprodex] Meloxicam [Mobic] 7.5 mg PO DAILY 07/13/20 08/03/23 Albuterol Sulf [Ventolin Hfa 1 - 2 puffs INH Q4HR PRN #1 each 07/29/23 08/03/23 Inhaler] levoFLOXacin [Levofloxacin] 750 mg PO DAILY #5 tab 07/29/23 08/03/23 Ondansetron Odt [Zofran] 4 mg TL Q6H PRN #10 tablet 08/03/23 08/03/23 Oxycodone HCl/Acetaminophen 1 each PO Q4H PRN #8 tablet 08/04/23 [Percocet 5-325 mg Tablet] - Allergies Allergies/Adverse Reactions: Allergies Allergy/AdvReac Type Severity Reaction Status Date / Time Penicillins Allergy Severe Anaphylaxis Verified 08/03/23 20:52 amlodipine AdvReac Unknown Verified 08/03/23 20:52 - Social History Does the pt smoke?: Yes Smoking Status: Current every day smoker Does the pt drink ETOH?: Yes Does the pt have substance abuse?: No - Immunizations Immunizations are current?: Yes - POLST Patient has POLST: No PD ED PE NORMAL - Vitals Vital signs reviewed: Yes - General General: Alert and oriented X 3, Other (She appears mildly uncomfortable) - Cardiac Cardiac: RRR, No murmur - Respiratory Respiratory: No respiratory distress, Clear bilaterally - Abdomen Abdomen: Normal bowel sounds, Soft, Other (Mild diffuse abdominal tenderness without surgical signs) - Neuro Neuro: Alert and oriented X 3 Results - Vitals Vitals: Vital Signs - 24 hr 08/03/23 08/03/23 08/03/23 20:52 20:55 22:55 Temperature 36.5 C 36.5 C Heart Rate 102 H 102 H 88 Respiratory 18 18 16 Rate Blood Pressure 116/50 L 116/50 L 118/60 O2 Saturation 96 96 98 08/03/23 08/04/23 08/04/23 23:15 00:05 01:00 Temperature 37.0 C Heart Rate 84 71 81 Respiratory 16 16 16 Rate Blood Pressure 125/84 H 112/71 123/86 H O2 Saturation 100 96 99 08/04/23 01:45 Temperature 36.9 C Heart Rate 72 Respiratory 16 Rate Blood Pressure 115/68 O2 Saturation 99 Oxygen O2 Source Room air - Labs Labs: Laboratory Tests 08/03/23 08/03/23 08/03/23 21:10 21:10 21:10 WBC 11.5 H RBC 5.36 Hgb 15.1 Hct 47.0 MCV 87.7 MCH 28.2 MCHC 32.1 RDW 12.4 Plt Count 770 H MPV 9.7 Neut # (Auto) 8.1 H Lymph # (Auto) 2.5 [place] # (Auto) 0.6 Eos # (Auto) 0.1 Baso # (Auto) 0.0 Absolute Nucleated RBC 0.00 Nucleated RBC % 0.0 Sodium 134 L Potassium 4.4 Chloride 102 Carbon Dioxide 28 Anion Gap 4.0 L BUN 13 Creatinine 1.0 Estimated GFR (MDRD) 58 L Glucose 103 Calcium 8.2 L Total Bilirubin 0.2 AST 11 ALT 7 L Alkaline Phosphatase 61 Total Protein 5.4 L Albumin 2.8 L Globulin 2.6 Albumin/Globulin Ratio 1.1 Lipase 20 Urine Color YELLOW Urine Clarity CLEAR Urine pH 6.0 Ur Specific [place] 1.025 Urine Protein NEGATIVE Urine Glucose (UA) NEGATIVE Urine Ketones NEGATIVE Urine Occult Blood NEGATIVE Urine Nitrite NEGATIVE Urine Bilirubin NEGATIVE Urine Urobilinogen 0.2 (NORMAL) Ur Leukocyte Esterase NEGATIVE Ur Microscopic Review NOT INDICATED Urine Culture Comments NOT INDICATED PD Medical Decision Making - ED course ED course: 52-year-old woman presents for continued abdominal pain. She was seen by my partner overnight and diagnosed with enteritis. Workup demonstrates similar very mild leukocytosis, similar thrombocytosis which was present last night but not present for years ago last time she had labs here done. CMP was grossly unremarkable. Urinalysis normal/negative. After the administration 1 mg of IV Dilaudid and 4 mg of IV Zofran she was feeling much better and declined further pain medication at that time on reexamination around 10:[address] Randall at 11pm shift chg pending CT read. Departure - Departure Disposition: Home, Self Care Clinical Impression: COVID, Enteritis Abdominal pain Qualifiers: Abdominal location: right lower quadrant Qualified Code(s): R10.31 - Right lower quadrant pain Condition: Good Record reviewed to determine appropriate education?: Yes Instructions: ED Abdominal Pain Female Non-Specific Abdominal Pain Prescriptions: Oxycodone HCl/Acetaminophen [Percocet 5-325 mg Tablet] 1 each PO Q4H PRN #8 tablet PRN Reason: Pain >8 Comments: You do have an elevation of your platelet count which is a sign of kind of chronic inflammation usually. This should definitely be mentioned to your primary care physician with whom you should follow-up no later than Monday. Call tomorrow for an appointment. Return if worse. Percoset prescription: Do not use when driving or operating heavy machinery. Dispose of any unused pills at your local police station. This medication may cause constipation. If you are prone to constipation then please take with [id number] sennadocusate and MiraLAX. Forms: PCP List Discharge Date/Time: 08/04/23 01:50
[2023-08-03] MEDS: ONDANSETRON 4 MG/2 ML VIAL IVP STA (21:16)
[2023-08-03] MEDS: HYDROmorphone 1 MG/ML CARPUJECT IVP STA (21:16)
[2023-08-03] MEDS: SODIUM CHLORIDE 0.9% 1,000 ML IV STA (21:16)
[2023-08-03 21:18] LABS: BASOPHILS % (AUTO) 0.3 %; EOSINOPHILS # (AUTO) 0.1 10^3/uL (0.0-0.7); EOSINOPHILS % (AUTO) 0.9 %; HGB - HEMOGLOBIN 15.1 g/dL (12.0-16.0); LYMPHOCYTES # (AUTO) 2.5 10^3/uL (1.5-3.5); LYMPHOCYTES % (AUTO) 21.8 %; MEAN CORPUSCULAR HEMOGLOBIN 28.2 pg (27.0-31.0); MEAN CORPUSCULAR HGB CONC 32.1 g/dL (32.0-36.0); MEAN CORPUSCULAR VOLUME 87.7 fL (81.0-99.0); MEAN PLATELET VOLUME 9.7 fL (7.9-10.8); MONOCYTES # (AUTO) 0.6 10^3/uL (0.0-1.0); MONOCYTES % (AUTO) 5.4 %; NEUTROPHILS # (AUTO) 8.1 10^3/uL (1.5-6.6); NEUTROPHILS % (AUTO) 70.8 %; PLT - PLATELET COUNT 770 10^3/uL (130-450); RED BLOOD COUNT 5.36 10^6/uL (4.20-5.40); RED CELL DISTRIBUTION WIDTH 12.4 % (12.0-15.0); WHITE BLOOD COUNT 11.5 x10^3/uL (4.8-10.8)
[2023-08-03 21:19] LABS: BILIRUBIN,URINE NEGATIVE (NEGATIVE); GLUCOSE, URINE (UA) NEGATIVE (NEGATIVE); KETONES,URINE (UA) NEGATIVE (NEGATIVE); LEUKOCYTE ESTERASE, URINE NEGATIVE (NEGATIVE); NITRITE,URINE NEGATIVE (NEGATIVE); OCCULT BLOOD,URINE NEGATIVE (NEGATIVE); PROTEIN,URINE NEGATIVE (NEGATIVE); UROBILINOGEN,URINE 0.2 (NORMAL) E.U./dL (NORMAL)
[2023-08-03 21:23] LABS: CLARITY,URINE CLEAR (CLEAR)
[2023-08-03 21:41] LABS: ALBUMIN 2.8 g/dL (3.2-5.5); ALBUMIN/GLOBULIN RATIO 1.1 (1.0-2.2); BILIRUBIN,TOTAL 0.2 mg/dL (0.2-1.0); CALCIUM 8.2 mg/dL (8.5-10.3); POTASSIUM 4.4 mmol/L (3.5-4.5); TOTAL PROTEIN 5.4 g/dL (6.4-8.9)
[2023-08-03] MEDS ORDERED: iohexoL-300 100 ML VIAL ONE (21:43)
[2023-08-03] MEDS: iohexoL-300 100 ML VIAL IVP ONE (22:00)
--- NOTE | 2023-08-04 00:33 | ED Physician Documentation ---
ED Addendum - Addendum Addendum: 08/04/23 00:32 Patient endorsed to me by Dr. Leigh awaiting CT report. Patient in no acute distress, resting comfortably in bed. 08/04/23 01:33 CT showed similar findings to previous, c/w enteritis. symptomatic care provided with IV dilaudid and zofran with improvement in pain. Symptomatic care discussed. Return precautions given. rx sent to pharmacy. Impression 1 COVID 2 enterocolitis 3 abdominal pain Disposition Home Condition stable
--- NOTE | 2023-08-04 00:50 | CT Report ---
PROCEDURE: Abdomen/Pelvis W INDICATIONS: iv onlu rlq pAIN CONTRAST: 100mL Omni 300 TECHNIQUE: After the administration of intravenous contrast, a CT scan of the abdomen and pelvis was performed. Images were recorded and evaluated at appropriate window settings. Reformats: coronal and sagittal. F or radiation dose reduction, the following was used: automated exposure control, adjustment of mA and /or kV according to patient size. COMPARISON: CT abdomen pelvis 08/02/2023. FINDINGS: Image quality: Diagnostic. Lower chest: Unremarkable. Liver: Hepatic cyst and additional subcentimeter hypodensity which is too small to characterize, prob able cyst versus hemangioma. Gallbladder and biliary tree: No radiopaque stones or wall thickening. No biliary dilation. Spleen: No splenomegaly. Pancreas: No pancreatic ductal dilation. Adrenals: No adrenal nodule. Kidneys and ureters: No hydronephrosis. No renal cystic lesion which requires follow up. No solid mas s. Stomach, bowel and peritoneum: No small bowel obstruction. Redemonstration of a few loops of small adeel wel with enhancing mucosa and submucosal edema. Normal caliber appendix in the right lower quadrant. No pneumoperitoneum or ascites. Lymph nodes: No central or retroperitoneal adenopathy. Vessels: No infrarenal aortic aneurysm. PELVIS Reproductive organs: Unremarkable. Bladder: No abnormal wall thickening, accounting for underdistention. Pelvic lymph nodes: No pelvic adenopathy by size criteria. Bones: No aggressive osseous abnormality. Other: No significant ventral or inguinal hernia. IMPRESSION: No significant interval change since prior CT 08/02/2023. Redemonstration of few loops of small bowel demonstrating mucosal enhancement with submucosal edema likely reflecting enterocolitis. Reviewed by: Monique Stanford MD on 08/04/2023 12:48 AM PST Approved by: Monique Stanford MD on 08/04/2023 12:48 AM PST Station ID: [id number]
[2023-08-04] MEDS: ONDANSETRON 4 MG/2 ML VIAL IVP STA (01:30)
[2023-08-04] MEDS: HYDROmorphone 1 MG/ML CARPUJECT IVP STA (01:31)
[2023-08-04 01:39] VITALS: O2SAT 99
[2023-08-04 02:08] VITALS: BP 115/68
== END 2023-08-04 01:50 | disposition home or self-care (01) ==
LOC: EDUNIT# → ED 20:49
DX: K52.9 Noninfective gastroenteritis and colitis, unspecified (principal); U07.1 COVID-19; R10.31 Right lower quadrant pain; I10 Essential (primary) hypertension; F17.200 Nicotine dependence, unspecified, uncomplicated; Z79.899 Other long term (current) drug therapy
CPT/HCPCS: 36415; 74177; 80053; 81003; 83690; 85025; 96374; 96375; 99284; J1170; Q9967; 81001; 87086